=== PATIENT | female | born 1980 | race African-American/Black ===

== ENCOUNTER 2017-05-12 08:25 | Emergency (ER) | payer MEDICAID ==
[2017-05-12 08:36] VITALS: BP 139/76; BMI 26.2
[2017-05-12] MEDS ORDERED: DECADRON INJ IM ONE (08:56)
[2017-05-12] MEDS ORDERED: TORADOL 60 MG VIAL IM ONE (08:56)
--- NOTE | 2017-05-12 08:58 | DR.EXTPAIN ---
HPI - Time seen Time seen: 08:45 - PCP Primary Care Physician: SUYAPA - Complaint/Symptoms Chief Complaint Doctor Comments: LEFT FOOT PAIN AND SWELLING TIMES 2 DAYS. NO TRAUMA. HISTORY ARTHRTIS AND LUPUS. ON MEDS BUT PAIN GETTING WORSE. Chief Complaint:: PT. C/O LEFT FOOT PAIN AND SWELLING THAT BEGAN ON SATURDAY. - Nurses notes reviewed Nurses Notes Review: Yes - Source History Provided: Patient - Mode of arrival Mode of Arrival: Wheelchair - Timing Onset of Chief Complaint: 05/10/17 - Context History of: Arthritis - Associated signs and symptoms Associated Signs and Symptoms: Pain, Swelling PMH - PMH Past Medical History: Yes Past Medical History: Arthritis Past Medical History Comment: LUPUS, FIBROMYALGIA Past Surgical History: Yes Surgical History: - Family History History of Family Medical Conditions: Yes Family Medical History: Diabetes Mellitus, [place], Coronary Artery Disease, Heart Failure, Sudden Cardiac , Hypertension - Social History Does patient currently use any type of tobacco product: Yes Have you used tobacco products in the last 12 months: Yes Type of Tobacco Use: Cigarettes Does any household member use tobacco: No Alcohol Use: None Do you use any recreational Drugs:: No Lives With: Spouse Lives Where: Home - infectious screening In the last 2 months have you had wt loss of >10#?: NO Have you had fever, night sweats or hemotysis?: No Have you traveled outside the country in the last 6 months?: No Isolation: Standard ROS - Review of Systems Constitutional: Weakness, Fatigue. negative: Chills, Fever Eyes: No Symptoms Reported ENTM: No Symptoms Reported Respiratoy: Non-Productive Cough. negative: Productive Cough, Short of Breath, Wheezing Cardiovascular: No Symptoms Reported. negative: Chest Pain Gastrointestinal/Abdominal: No Symptoms Reported. negative: Abdominal Pain, Nausea, Vomiting Genitourinary: No Symptoms Reported. negative: Dysuria, Frequency, Hematuria Neurological: Headache, Weakness, Dizziness Musculoskeletal: Back Pain, Ankle, Foot Integumentary: No Symptoms Reported. negative: Change in Color, Juandice Hematologic/Lymphatic: No Symptoms Reported Endocrine: No Symptoms Reported All Other Systems: Reviewed and Negative PE - Vital Signs Vitals: Temperature 98.5 F Pulse Rate 106 Respiratory Rate 17 Blood Pressure 139/76 O2 Sat by Pulse Oximetry 100 - General Limitations: No Limitations General Appearance: Alert - Head Head Exam: Normal Inspection - Eyes Eye exam: Normal Appearance - ENT ENT Exam: Normal Exam - Neck Neck Exam: Trachea Midline - Chest Chest Inspection: Symmetric Chest Wall Rise - Respiratory Respiratory Exam: Normal Lung Sounds Bilat Respiratory Exam: Bilateral Clear to Auscultation - Cardiovascular Cardiovascular Exam: Regular Rate, Normal Rhythm, Normal Heart Sounds - Abdominal Exam Abdominal Exam: Normal Bowel Sounds, Soft. negative: Tenderness - Extremities Extremities Exam: Tenderness (LT FOOT), Joint Swelling (LT FOOT) - Back Back Exam: Paraspinal Tenderness (LOWER BACK) - Neurological Neurological Exam: Alert, Oriented X3 - Psychiatric Psychiatric Exam: Normal Affect, Normal Mood - Skin Skin Exam: Erythema MDM - Differential Diagnosis Differential Diagnosis: Other (ARTHRITIS, LUPUS) Course - Treatment Treatment: SEE ORDERS. - Reevaluation 1st: Improved - Education/Counseling Education/Counseling: Patient, Education Educated On: Treatment, Diagnosis, Needs for Follow Up - Diagnosis Discharge Problem: Arthritis, Left foot pain Lupus Qualifiers: Systemic lupus erythematosus type: unspecified Systemic lupus erythematosus organ involvement: unspecified Qualified Code(s): M32.9 - Systemic lupus erythematosus, unspecified - Discharge Plan Disposition: 01 HOME, SELF-CARE Condition: Stable - Follow ups/Referrals Follow ups/Referrals: Usman Mcclelland [Primary Care Provider] - 3 days - Instructions Instructions: Arthritis, Systemic Lupus Erythematosus, Adult Additional Instructions: RETURN TO ED IF WORSE.
[2017-05-12] MEDS ORDERED: TORADOL 60 MG VIAL ONE (09:06)
[2017-05-12] MEDS ORDERED: DECADRON INJ ONE (09:06)
== END 2017-05-12 09:53 | disposition home or self-care (01) ==
LOC: ER 08:30
DX: M32.8 Other forms of systemic lupus erythematosus (principal); M19.90 Unspecified osteoarthritis, unspecified site; M79.672 Pain in left foot
CPT/HCPCS: 96372; 99282; J1100; J1885

== ENCOUNTER 2017-06-08 13:56 | Emergency (ER) | payer MEDICAID ==
[2017-06-08 14:06] VITALS: BP 131/75; BMI 26.2
[2017-06-08] MEDS ORDERED: TORADOL 60 MG VIAL IM ONE (14:24)
[2017-06-08] MEDS ORDERED: DECADRON TAB PO ONE (14:25)
[2017-06-08] MEDS ORDERED: PHENERGAN INJ 25 MG IM ONE (14:25)
[2017-06-08] MEDS ORDERED: TORADOL 60 MG VIAL ONE (14:32)
[2017-06-08] MEDS ORDERED: PHENERGAN INJ 25 MG ONE (14:32)
[2017-06-08] MEDS ORDERED: DECADRON INJ ONE (14:32)
--- NOTE | 2017-06-08 14:32 | DR.GENAD ---
HPI - PCP Primary Care Physician: rabia - Complaint/Symptoms Chief Complaint Doctors Comments: Patient complains of not being able to move her left shoulder and arm due to pain for the past 2-3 days. States she had similar problem week ago but it went away and started again the other day. States she has lupus and sees a storeroom supervisor and is taking Methotrexade, Plaqunil, cymbalta, Soma and percocet 10. States she is out of her Perocet 10. she gets 120 monthly and states she usually run out a week early. she denies chest pain, SOB, nausea or vomiting. States she is off her methotrexade because she had sores in her mouth and her storeroom supervisor wanted to see if it was causing the sores so he stopped her methotrexate. She has been off Prednisone for a while. SHe denies fever, chills, headache or dizziness. States she can move her arm, hand, fingers and shoulder normally just hurts when she move her shoulder. Chief Complaint:: patient stated her left arm has been hurting for a week and last night it went numb. she stated she has lupus and fibromyliga and she needs a shot. - Nurses notes reviewed Nurses Notes Review: Yes - Source History Provided: Patient - Mode of Arrival Mode of Arrival: Ambulatory - Timing Onset of Chief Complaint: 06/05/17 Came on: Gradually - Duration Duration: Intermittent How lon Duration: Days - Location Location: left shoulder pain - Severity Severity: Moderate, Severe - Modifying Factors Worsens:: movement Improves:: nothing PMH - PMH Past Medical History: Yes Past Medical History: Arthritis Past Surgical History: Yes Surgical History: - Family History History of Family Medical Conditions: Yes Family Medical History: Diabetes Mellitus, [place], Coronary Artery Disease, Heart Failure, Sudden Cardiac , Hypertension - Social History Does patient currently use any type of tobacco product: Yes Have you used tobacco products in the last 12 months: Yes Type of Tobacco Use: Cigarettes How many years tobacco product used: 13 Does any household member use tobacco: Yes Alcohol Use: None Do you use any recreational Drugs:: No Lives With: Family Lives Where: Home - infectious screening In the last 2 months have you had wt loss of >10#?: NO Have you had fever, night sweats or hemotysis?: No Have you traveled outside the country in the last 6 months?: No Isolation: Standard ROS - Review of Systems Constitutional: No Symptoms Reported. negative: See HPI, Chills, Diaphoresis, Fever, Malaise, Weakness, Irritable, Fatigue, Loss of Appetite, Other Eyes: No Symptoms Reported. negative: See HPI, Eye Pain, Blurred Vision, Tearing, Discharge, Photophobia, Diplopia, Other ENTM: No Symptoms Reported. negative: See HPI, Ear Pain, Ear Discharge, Pulling on Ears, Hearing Loss, Nose Pain, Nose Discharge, Epistaxis, Nose Congestion, Mouth Pain, Mouth Swelling, Loose Teeth, Drooling, Throat Pain, Throat Swelling, Ear Foreign Body Respiratoy: No Symptoms Reported. negative: See HPI, Productive Cough, Non- Productive Cough, Moist Cough, Dry Cough, Hacking Cough, Barking Cough, Brassy Cough, Orthopnea, Short of Breath, Stridor, Wheezing, Hemoptysis, Other Cardiovascular: No Symptoms Reported. negative: See HPI, Chest Pain, Edema, Palpitations, Syncope, Cyanosis, Skin Mottling, Other Gastrointestinal/Abdominal: No Symptoms Reported. negative: See HPI, Abdominal Pain, Constipation, Diarrhea, Nausea, Vomiting, Food Intolerance, Other Genitourinary: No Symptoms Reported. negative: See HPI, Discharge, Dysuria, Frequency, Hematuria, Pain, Bleeding, Other Neurological: No Symptoms Reported. negative: See HPI, Anxiety, Depressed, Emotional Problems, Headache, Numbness, Paresthesia, Pre-existing Deficit, Seizure, Tingling, Tremors, Weakness, Dizziness, Problems Walking, Speech Problem, Other Musculoskeletal: No Symptoms Reported, Joint Pain, Muscle Pain, Left, Shoulder Integumentary: No Symptoms Reported. negative: See HPI, Change in Color, Change in Hair/Nails, Dryness, Lesions, Lumps, Rash, Itching, Wound, Bruises, Juandice, Other Hematologic/Lymphatic: No Symptoms Reported Endocrine: No Symptoms Reported. negative: See HPI, Excessive Sweating, Flushing, Intolerance to Cold, Intolerance to Heat, Increased Hunger, Increased Thirst, Increased Urine, Unexplained Weight Gain, Unexplained Weight Loss, Failure to Thrive, Decreased Appetite, Other Psychiatric: No Symptoms Reported PE - Vital Signs Vitals: Temperature 98.7 F Pulse Rate 87 Respiratory Rate 16 Blood Pressure 131/75 O2 Sat by Pulse Oximetry 100 - General Limitations: No Limitations General Appearance: Alert, In Distress (moderate) - Head Head Exam: Normal Inspection, Atraumatic, Normocephalic - Eyes Eye exam: Normal Appearance, PERRL, EOMI. negative: Scleral Icterus, Conjunctival Injection, Nystagmus, Miosis, Mydrasis, Periorbital Swelling, Periorbital Tenderness, Other - ENT ENT Exam: Normal Exam, Normal Oropharynx, Mucous Membranes Moist, TM's Normal Bilaterally. negative: Normal External Ear Exam, Mucous Membranes Dry, Other TM/Canal Exam: Bilateral Normal Nose Exam: Normal Nose Exam Mouth Exam: Normal Inspection. negative: Drooling, Trismus, Lip Swelling, Tongue Elevation, Tongue Swelling, Laceration, Other Throat Exam: Normal Inspection. negative: Tonsillar Erythema, Tonsillomegaly, Tonsillar Exudate, R Peritonsillar Mass, L Peritonsillar Mass, Muffled Voice, Other - Neck Neck Exam: Normal Inspection, Full ROM, Trachea Midline. negative: Tenderness, Meningismus, Lymphadenopathy, Thyromegaly, Other - Chest Chest Inspection: Normal Inspection, Symmetric Chest Wall Rise. negative: Tenderness, Rash, Abscess, Other - Respiratory Respiratory Exam: Normal Lung Sounds Bilat Respiratory Exam: Bilateral Clear to Auscultation - Cardiovascular Cardiovascular Exam: Regular Rate, Normal Rhythm, Normal Heart Sounds. negative : Bradycardia, Tachycardia, Irregular Rhythm, Systolic Murmur, Diastolic Murmur , Rubs, Gallop, Clicks, JVD, +S1, +S2, +S3, +S4, Other - Abdominal Exam Abdominal Exam: Normal Inspection, Normal Bowel Sounds, Soft. negative: Distention, Tenderness, Guarding, Rebound, Rigidity, Dimnished Bowel Sounds, Hyperactive Bowel Sounds, Hypoactive Bowel Sounds, Organomegaly, Trauma, Incision, Ascites, Mass, Bruit, Pulsatile Mass, Hernia, Other Abdominal Tenderness: negative: RUQ, RLQ, LUQ, LLQ, Epigastrium, Suprapubic, Diffuse, Mild, Moderate, Severe, Other - Extremities Extremities Exam: Normal Inspection, Full ROM, Tenderness (left shoulder tender ; no swelling or erythema), Normal Capillary Refill. negative: Edema, Joint Swelling, Calf Tenderness, Other - Back Back Exam: Normal Inspection, Full ROM. negative: Tenderness, (R) CVA Tenderness, (L) CVA Tenderness, Muscle Spasm, Paraspinal Tenderness, Vertebral Tenderness, Rashes, (R) Sciatic Notch Tenderness, (L) Sciatic Notch Tendern, (R ) Straight Leg Raise, (L) Straight Leg Raise, Other - Neurologic Neurological Exam: Alert, Oriented X3, CN II-XII Intact, Reflexes Normal. negative: Normal Gait (gait not tested) - Psychiatric Psychiatric Exam: Normal Affect, Normal Mood - Skin Skin Exam: Warm, Dry, Intact, Normal Color. negative: Rash, Cyanosis, Diaphoresis, Erythema, Pallor, Mottled, Other ROR - Labs Reviewed Laboratory Results Reviewed?: Yes (all x-ray results reviewed and discussed with patient) - XRAY XRAY Interpreted by: Radiologist (Shoulder,left: Negative exam.) - Diagnosis Discharge Problem: Lupus (systemic lupus erythematosus), Myalgia Left shoulder pain Qualifiers: Chronicity: acute Qualified Code(s): M25.512 - Pain in left shoulder - Discharge Plan Disposition: 01 HOME, SELF-CARE Condition: Stable Prescriptions: Acetaminophen/Codeine Tab [TYLENOL w/CODEINE #3 (300 MG/30 MG) *] 1 tab PO Q4- 6H PRN #24 tab PRN Reason: Pain Methylprednisolone Dosepak 4Mg [MEDROL DOSEPAK (4 mg tab x 21)] 1 marlene PO ONCE # 1 marlene - Follow ups/Referrals Follow ups/Referrals: Usman Mcclelland [Primary Care Provider] - 3 days - Instructions Instructions: Shoulder Pain, Systemic Lupus Erythematosus, Adult, Muscle Pain, Adult
[2017-06-08] MEDS ORDERED: DECADRON INJ IM ONE (14:33)
--- NOTE | 2017-06-08 15:22 | RAD ---
HISTORY: Left shoulder pain, nontraumatic Study: Left shoulder three view Comparison: None Findings: The appearance of the clavicle and AC joint are unremarkable. The glenohumeral articulation is norm al in its appearance. No acute cortical disruption or dislocation can be identified. The visualize d portions of the scapula are unremarkable. In addition, the visualized portions of the left hemith orax appear normal. IMPRESSION: 1. Negative exam. Reported By:
== END 2017-06-08 16:38 | disposition home or self-care (01) ==
LOC: ER 14:02
DX: L93.0 Discoid lupus erythematosus (principal); M79.1 Myalgia; M25.512 Pain in left shoulder
CPT/HCPCS: 73030; 96372; 99282; J1100; J1885; J2550

== ENCOUNTER 2017-06-24 15:30 | Emergency (ER) | payer MEDICAID ==
[2017-06-24 15:35] VITALS: BP 122/70; BMI 26.2
[2017-06-24] MEDS ORDERED: TORADOL 60 MG VIAL IM ONE (16:15)
--- NOTE | 2017-06-24 16:15 | DR.GENAD ---
HPI - PCP Primary Care Physician: rabia - HPI Comment HPI Comment: PAIN WORSE TODAY. NO TRAUMA. HAVE LUPUS ARTHRITIS AND PAIN SIMILAR TO LUPUS FLARE UP. - Complaint/Symptoms Chief Complaint Doctors Comments: PAIN RIGHT FOOT TIMES FEW DAYS. Chief Complaint:: patient stated her lupus is acting up in her right foot again she stated she needs that toradol shot to knock the pain on out. - Nurses notes reviewed Nurses Notes Review: Yes - Source History Provided: Patient - Mode of Arrival Mode of Arrival: Wheelchair - Timing Onset of Chief Complaint: 06/22/17 Came on: Gradually - Duration Duration: Days - Severity Severity: Moderate PMH - PMH Past Medical History: Yes Past Medical History: Arthritis Past Surgical History: Yes Surgical History: - Family History History of Family Medical Conditions: Yes Family Medical History: Diabetes Mellitus, [place], Coronary Artery Disease, Heart Failure, Sudden Cardiac , Hypertension - Social History Does patient currently use any type of tobacco product: Yes Have you used tobacco products in the last 12 months: Yes Type of Tobacco Use: Cigarettes How many years tobacco product used: 12 Does any household member use tobacco: Yes Alcohol Use: None Do you use any recreational Drugs:: No Lives With: Family Lives Where: Home - infectious screening In the last 2 months have you had wt loss of >10#?: NO Have you had fever, night sweats or hemotysis?: No Have you traveled outside the country in the last 6 months?: No Isolation: Standard ROS - Review of Systems Constitutional: Weakness, Fatigue. negative: Chills, Fever Eyes: No Symptoms Reported. negative: Eye Pain, Discharge ENTM: No Symptoms Reported. negative: Ear Pain, Nose Discharge, Nose Congestion , Throat Pain Respiratoy: Non-Productive Cough. negative: Productive Cough, Short of Breath, Wheezing, Hemoptysis Cardiovascular: No Symptoms Reported. negative: Chest Pain Gastrointestinal/Abdominal: No Symptoms Reported. negative: Abdominal Pain, Diarrhea, Nausea, Vomiting Genitourinary: No Symptoms Reported. negative: Dysuria, Frequency, Hematuria Neurological: Headache, Weakness. negative: Dizziness Musculoskeletal: Joint Pain, Joint Swelling, Muscle Pain Integumentary: No Symptoms Reported Hematologic/Lymphatic: No Symptoms Reported Endocrine: No Symptoms Reported All Other Systems: Reviewed and Negative PE - Vital Signs Vitals: Temperature 98.9 F Pulse Rate 91 Respiratory Rate 16 Blood Pressure 122/70 O2 Sat by Pulse Oximetry 100 - General Limitations: No Limitations General Appearance: Alert - Head Head Exam: Normal Inspection - Eyes Eye exam: Normal Appearance - ENT ENT Exam: Normal External Ear Exam External Ear Exam: Normal External Inspection TM/Canal Exam: Bilateral Normal Nose Exam: Normal Nose Exam Mouth Exam: Normal Inspection Throat Exam: Normal Inspection - Neck Neck Exam: Trachea Midline - Chest Chest Inspection: Symmetric Chest Wall Rise - Respiratory Respiratory Exam: Normal Lung Sounds Bilat Respiratory Exam: Bilateral Clear to Auscultation - Cardiovascular Cardiovascular Exam: Regular Rate, Normal Rhythm, Normal Heart Sounds - Abdominal Exam Abdominal Exam: Normal Bowel Sounds, Soft. negative: Tenderness - Extremities Extremities Exam: Tenderness (RT FOOT AND ANKLE TENDER), Joint Swelling (RT ANKLE SWOLLEN) - Back Back Exam: Normal Inspection - Neurologic Neurological Exam: Alert, Oriented X3 - Psychiatric Psychiatric Exam: Normal Affect, Normal Mood - Skin Skin Exam: Normal Color MDM - Additional Information Additional Information Obtained From: Family - Differential Diagnosis Differential Diagnosis: ARTHRITIS, LUPUS Course - Treatment Treatment: SEE ORDERS. IM TORADOL. PAIN IMPROVE, - Education/Counseling Education/Counseling: Patient, Family, Education Educated On: Treatment, Diagnosis, Needs for Follow Up - Diagnosis Discharge Problem: Arthritis Lupus Qualifiers: Systemic lupus erythematosus type: unspecified Systemic lupus erythematosus organ involvement: unspecified Qualified Code(s): M32.9 - Systemic lupus erythematosus, unspecified - Discharge Plan Disposition: 01 HOME, SELF-CARE Condition: Stable Prescriptions: Ketorolac Tromethamine [Toradol Tab] 10 mg PO Q8H PRN #15 tab PRN Reason: Pain - Follow ups/Referrals Follow ups/Referrals: Usman Mcclelland [Primary Care Provider] - 3 days - Instructions Instructions: Arthritis, [id number] Additional Instructions: return to ed if worse.
[2017-06-24] MEDS ORDERED: TORADOL 60 MG VIAL ONE (16:24)
== END 2017-06-24 17:13 | disposition home or self-care (01) ==
LOC: ER 15:37
DX: M19.90 Unspecified osteoarthritis, unspecified site (principal)
CPT/HCPCS: 96372; 99282; J1885

== ENCOUNTER → 2018-01-22 | Outpatient (CLI) | payer MEDICAID | END | disposition home or self-care (01) | DRG 547 | LOC: RAD 13:07 | PROVIDERS: ATTEND Internal Medicine Rheumatology | DX: M32.8 Other forms of systemic lupus erythematosus (principal); R09.1 Pleurisy; R07.9 Chest pain, unspecified; R01.1 Cardiac murmur, unspecified | CPT/HCPCS: 93306 ==

== ENCOUNTER 2018-02-17 12:26 | Emergency (ER) | payer MEDICAID ==
[2018-02-17 12:35] VITALS: BP 134/71; BMI 25.4
[2018-02-17] MEDS ORDERED: TORADOL 60 MG VIAL IM ONE (14:02)
[2018-02-17] MEDS ORDERED: DECADRON INJ IM ONE (14:02)
--- NOTE | 2018-02-17 14:03 | DR.GENAD ---
HPI - PCP Primary Care Physician: SUYAPA KLEIN - HPI Comment HPI Comment: HISTORY ARTHRTIS AND LUPUS. FLARE UP INTERMITTENTLY. NO FEVER OR TRAUMA. - Complaint/Symptoms Chief Complaint Doctors Comments: PAIN LEFT LEG AND RT HAND PAIN TIMES ONE WEEK. Chief Complaint:: PT C/O OVER THE LAST WEEK HAVING SOME PAIN TO HER RIGHT LEG DUE TO FIBRO AND LUPUS, PT TOOK STERIODS AND THEY HELPED AND SHE WOKE UP THIS AM AND HER LEFT LEG IS HURTING HER AND HER RIGHT HAND IS DRAWING UP. Self Treatment fo Chief Complaint: PERCOCET, SOMA , NEURONTIN , - Nurses notes reviewed Nurses Notes Review: Yes - Source History Provided: Patient - Mode of Arrival Mode of Arrival: Ambulatory - Timing Onset of Chief Complaint: 02/10/18 Came on: Suddenly - Duration Duration: Constant Duration: Days - Severity Severity: Moderate PMH - PMH Past Medical History: Yes Past Medical History: Arthritis Past Medical History Comment: FIBRO, LUPUS, Past Surgical History: Yes Surgical History: - Family History History of Family Medical Conditions: Yes Family Medical History: Diabetes Mellitus, [place], Coronary Artery Disease, Heart Failure, Sudden Cardiac , Hypertension - Social History Does patient currently use any type of tobacco product: Yes Have you used tobacco products in the last 12 months: Yes Type of Tobacco Use: Cigarettes How many years tobacco product used: 10 Does any household member use tobacco: No Alcohol Use: None Do you use any recreational Drugs:: No Lives With: Family Lives Where: Home - infectious screening In the last 2 months have you had wt loss of >10#?: NO Have you had fever, night sweats or hemotysis?: No Have you traveled outside the country in the last 6 months?: No Isolation: Standard ROS - Review of Systems Constitutional: No Symptoms Reported. negative: Chills, Fever Eyes: No Symptoms Reported ENTM: No Symptoms Reported Respiratoy: No Symptoms Reported Cardiovascular: No Symptoms Reported Gastrointestinal/Abdominal: No Symptoms Reported Genitourinary: No Symptoms Reported Neurological: No Symptoms Reported Musculoskeletal: Joint Pain, Joint Swelling, Muscle Pain, Right, Left, Hand, Leg Integumentary: No Symptoms Reported Hematologic/Lymphatic: No Symptoms Reported Endocrine: No Symptoms Reported All Other Systems: Reviewed and Negative PE - Vital Signs Vitals: Temperature 99.2 F Pulse Rate 113 Respiratory Rate 20 Blood Pressure 134/71 O2 Sat by Pulse Oximetry 99 - General Limitations: No Limitations General Appearance: Alert - Head Head Exam: Normal Inspection - Eyes Eye exam: Normal Appearance - ENT ENT Exam: Normal External Ear Exam External Ear Exam: Normal External Inspection TM/Canal Exam: Bilateral Normal Nose Exam: Normal Nose Exam Mouth Exam: Normal Inspection Throat Exam: Normal Inspection - Neck Neck Exam: Normal Inspection - Chest Chest Inspection: Symmetric Chest Wall Rise - Respiratory Respiratory Exam: Normal Lung Sounds Bilat Respiratory Exam: Bilateral Clear to Auscultation - Cardiovascular Cardiovascular Exam: Regular Rate, Normal Rhythm, Normal Heart Sounds - Abdominal Exam Abdominal Exam: Normal Bowel Sounds, Soft. negative: Tenderness - Extremities Extremities Exam: Tenderness (RT HAND AND LT ANKLE AND KNEE SWELLING AND TENDERNESS. VALDO.) - Back Back Exam: Normal Inspection - Neurologic Neurological Exam: Alert, Oriented X3 - Psychiatric Psychiatric Exam: Normal Affect, Normal Mood - Skin Skin Exam: Normal Color MDM - Differential Diagnosis Differential Diagnosis: ARTHRTIS, LUPUS, FIBROMYALGIA Course - Treatment Treatment: SEE ORDERS. IM DECADRON AND TORADOL IN ED. IMPROVE. - Education/Counseling Education/Counseling: Patient, Education Educated On: Treatment, Diagnosis, Needs for Follow Up - Diagnosis Discharge Problem: Arthritis, Fibromyalgia - Discharge Plan Disposition: 01 HOME, SELF-CARE Condition: Stable - Follow ups/Referrals Follow ups/Referrals: Usman Mcclelland [Primary Care Provider] - 3 days - Instructions Instructions: Arthritis, [id number], Myofascial Pain Syndrome and Fibromyalgia, Musculoskeletal Pain Additional Instructions: RETURN TO ED IF WORSE. CONTINUE MEDS AT HOME.
[2018-02-17] MEDS ORDERED: TORADOL 60 MG VIAL ONE (14:07)
[2018-02-17] MEDS ORDERED: DECADRON INJ ONE (14:07)
== END 2018-02-17 14:54 | disposition home or self-care (01) ==
LOC: ER 12:41
DX: M19.90 Unspecified osteoarthritis, unspecified site (principal); M79.7 Fibromyalgia
CPT/HCPCS: 96372; 99282; J1100; J1885

== ENCOUNTER 2018-03-10 13:32 | Emergency (ER) | payer MEDICAID ==
[2018-03-10 13:35] VITALS: BMI 25.4
[2018-03-10 14:31] LABS: BASOPHILS # (AUTO) 0.1 X10^3/uL (0.0-0.1); BASOPHILS % (AUTO) 1.1 % (0.2-1.0); EOSINOPHILS # (AUTO) 0.1 x10^3/uL (0.0-0.2); EOSINOPHILS % (AUTO) 0.7 % (0.9-2.9); HEMATOCRIT 28.4 % (36.0-47.0); HEMOGLOBIN 8.9 g/dL (12.0-16.0); LYMPHOCYTES # (AUTO) 1.4 X10^3/uL (1.3-2.9); LYMPHOCYTES % (AUTO) 14.4 % (21.0-51.0); MEAN CORPUSCULAR HEMOGLOBIN 20.1 pg (27.0-34.0); MEAN CORPUSCULAR HGB CONC 31.2 g/dL (33.0-35.0); MEAN CORPUSCULAR VOLUME 64.2 fL (80.0-100.0); MEAN PLATELET VOLUME 7.2 fL (7.4-11.0); MONOCYTES # (AUTO) 0.8 x10^3/uL (0.3-0.8); MONOCYTES % (AUTO) 7.8 % (0.0-13.0); NEUTROPHILS # (AUTO) 7.7 x10^3/uL (2.2-4.8); PLATELET COUNT 384 X10^3/uL (150.0-450.0); RED BLOOD COUNT 4.42 X10^6/uL (3.5-5.4); RED CELL DISTRIBUTION WIDTH 21.7 % (11.6-16.5); WHITE BLOOD COUNT 10.1 X10^3/uL (3.6-10.0)
[2018-03-10 14:39] LABS: PLATELET MORPHOLOGY COMMENT NORMAL (NORMAL)
[2018-03-10 14:41] LABS: ANISOCYTOSIS 2+; HYPOCHROMASIA 2+; MICROCYTOSIS 2+; TARGET CELLS F
[2018-03-10 14:43] VITALS: BP 122/61
[2018-03-10 14:45] LABS: BLOOD UREA NITROGEN 10 mg/dL (7-18); CARBON DIOXIDE 27.6 mmol/L (21-32); CHLORIDE 105 mmol/L (98-107); CREATININE 0.67 mg/dL (0.55-1.02); SODIUM 140 mmol/L (136-145); TROPONIN I < 0.02 ng/mL (0-1.5); eGFR BLACK RACES > 60 (>60); eGFR NON BLACK RACES > 60 (>60)
[2018-03-10 14:49] LABS: ALANINE AMINOTRANSFERASE 22 Units/L (12-78); ALBUMIN 3.2 g/dL (3.4-5.0); ALKALINE PHOSPHATASE 73 Units/L (46-116); ASPARTATE AMINO TRANSFERASE 15 Units/L (15-37); CKMB % 2.4 % (<4); COR CA(FOR HYPOALB) 9.6 mg/dL (8.5-10.1); CREATINE KINASE 42 Units/L (26-192); CREATINE KINASE MB < 1.0 ng/mL (0-4.0)
[2018-03-10] MEDS ORDERED: DECADRON INJ IM ONE (14:54)
[2018-03-10] MEDS ORDERED: TORADOL 60 MG VIAL IM ONE (14:54)
--- NOTE | 2018-03-10 14:55 | RAD ---
HISTORY: Chest pain. Comparison: 03/13/2016. Exam/Technique: Single portable view of the chest. Findings: The exam demonstrates a midline trachea. The cardiac silhouette is mildly enlarged without evidence f or CHF. The lungs are clear without consolidation, effusion, or pneumothorax. No other cardiopulmonar y abnormality is seen. The bony thorax is grossly intact/stable. Impression: Mildly enlarged cardiac silhouette without additional cardiopulmonary abnormality seen. Reported By:
[2018-03-10] MEDS ORDERED: TORADOL 60 MG VIAL ONE (14:56)
[2018-03-10] MEDS ORDERED: DECADRON INJ ONE (14:56)
--- NOTE | 2018-03-10 14:59 | DR.CP ---
HPI - Time Seen Time seen: 14:00 - PCP Primary Care Physician: SUYAPA - HPI Comment HPI Comment: HISTORY LUPUS AND FIBROMYALGIA. MED AT HOME DID NOT HELP PAIN. PATIENT MAKAYLA FEVER OR URI SYMTOMS. PAIN SIMILAR TO PREVIOUS EPISODES. - Complaint Chief Complaint Doctor Comments: CHEST PAIN TIMES 3DAYS. LT ARM PAIN SINCE THIS AM. Chief Complaint:: PT. C/O LEFT SIDED CHEST PAIN THAT BEGAN ON SATURDAY & HAS BEEN INTERMITTENT. LEFT ARM BEGAN HURTING THIS MORNING WITH RADIATING BACK PAIN. PT. HAS ALSO HAD SHORTNESS OF BREATH. - Reviewed Nurses Notes Review: Yes - Source History Provided: Patient - Mode of Arrival Mode of Arrival: Ambulatory - Timing Onset of Chief Complaint: 03/07/18 Came on: Suddenly Pain: Present Now - Duration Duration: Intermittent Duration: Hours - Location Location of Chest Pain: Left, Chest Chest Pain Radiation Location: Left Arm, Back - Context Onset: At rest, With light exertion Cardiac Risk Factors: Family History PE Risk Factors: None History of: Similar pain in the past Prehospital Care: None - Quality Quality: Sharp - Severity Severity: Moderate - Modifying Factors Worsens: Nothing Impoves: Other - Associated Signs and Symptoms Associated Signs and Symptoms: Shortness of Breath PMH - PMH Past Medical History: Yes Past Medical History: Arthritis Past Medical History Comment: LUPUS, FIBROMYALGIA Past Surgical History: Yes Surgical History: - Family History History of Family Medical Conditions: Yes Family Medical History: Diabetes Mellitus, CT, Coronary Artery Disease, Heart Failure, Sudden Cardiac , Hypertension - Social History Does patient currently use any type of tobacco product: Yes Have you used tobacco products in the last 12 months: Yes Type of Tobacco Use: Cigarettes Does any household member use tobacco: No Alcohol Use: None Do you use any recreational Drugs:: No Lives With: Spouse Lives Where: Home - infectious screening In the last 2 months have you had wt loss of >10#?: NO Have you had fever, night sweats or hemotysis?: No Have you traveled outside the country in the last 6 months?: No Isolation: Standard ROS - Review of Systems Constitutional: Weakness, Fatigue. negative: Chills, Fever Eyes: No Symptoms Reported. negative: Eye Pain, Discharge ENTM: No Symptoms Reported. negative: Ear Pain, Nose Discharge, Nose Congestion , Throat Pain Respiratoy: Non-Productive Cough, Short of Breath. negative: Productive Cough, Wheezing, Hemoptysis Cardiovascular: Chest Pain. negative: Edema, Palpitations, Syncope Gastrointestinal/Abdominal: No Symptoms Reported. negative: Abdominal Pain, Diarrhea, Nausea, Vomiting Genitourinary: No Symptoms Reported. negative: Dysuria, Frequency, Hematuria Neurological: No Symptoms Reported, Headache, Paresthesia, Weakness, Dizziness Musculoskeletal: Muscle Pain Integumentary: No Symptoms Reported Hematologic/Lymphatic: No Symptoms Reported Endocrine: No Symptoms Reported. negative: Flushing, Increased Thirst, Increased Urine All Other Systems: Reviewed and Negative PE - Vitals Vitals: Temperature 98.6 F Pulse Rate [Apical] 90 Pulse Rate 99 Respiratory Rate 19 Blood Pressure [Left Arm] 122/61 Blood Pressure 118/64 O2 Sat by Pulse Oximetry 100 - General Limitations: No Limitations General Appearance: Alert - Head Head Exam: Normal Inspection - Eyes Eye exam: Normal Appearance - ENT ENT Exam: Normal External Ear Exam - Chest Chest Inspection: Symmetric Chest Wall Rise - Respiratory Respiratory Exam: Respiratory Distress Respiratory Exam: Bilateral Rhonchi, Lower Rhonchi - Cardiovascular Cardiovascular Exam: Regular Rate, Normal Rhythm, Normal Heart Sounds Pulse: Normal, Radial, Femoral Edema: Normal - Abdominal Exam Abdominal Exam: Normal Bowel Sounds, Soft. negative: Tenderness - Extremities Extremities Exam: Normal Inspection - Back Back Exam: Normal Inspection - Neurologic Neurological Exam: Alert, Oriented X3, CN II-XII Intact, Normal Gait, Reflexes Normal. negative: Motor Sensory Deficit - Psychiatric Psychiatric Exam: Normal Affect, Normal Mood - Skin Skin Exam: Normal Color MDM - Additional Information Additional Information Obtained From: Family - Differential Diagnosis Differential Diagnosis: Chest Wall Pain, Costochondritis, Esophageal Reflux/ Spasm, Gastritis, Myocardial Infarction, Pericarditis, Pleuritis, Pancreatitis, Pneumonia, Pneumothorax, Pulmonary Embolus Course - Treatment Treatment: SEE ORDERS. - Education/Counseling Education/Counseling: Patient, Family, Education Educated On: Treatment, Diagnosis, Needs for Follow Up ROR - Labs Reviewed Laboratory Results Reviewed?: Yes Result Diagrams: 03/10/18 14:18 03/10/18 14:18 Laboratory: WBC 10.1 X10^3/uL (3.6-10.0) H 03/10/18 14:18 RBC 4.42 X10^6/uL (3.5-5.4) 03/10/18 14:18 Hgb 8.9 g/dL (12.0-16.0) L 04/09/18 14:18 Hct 28.4 % (36.0-47.0) L 03/10/18 14:18 MCV 64.2 fL (80.0-100.0) L 03/10/18 14:18 MCH 20.1 pg (27.0-34.0) L 03/10/18 14:18 MCHC 31.2 g/dL (33.0-35.0) L 03/10/18 14:18 RDW 21.7 % (11.6-16.5) H 03/10/18 14:18 Plt Count 384 X10^3/uL (150.0-450.0) 03/10/18 14:18 Plt Count Comment Adequate (ADEQUATE) 03/10/18 14:18 MPV 7.2 fL (7.4-11.0) L 03/10/18 14:18 Neut % (Auto) 76.0 % (42.0-75.0) H 03/10/18 14:18 Lymph % (Auto) 14.4 % (21.0-51.0) L 03/10/18 14:18 [place] % (Auto) 7.8 % (0.0-13.0) 03/10/18 14:18 Eos % (Auto) 0.7 % (0.9-2.9) L 03/10/18 14:18 Baso % (Auto) 1.1 % (0.2-1.0) H 03/10/18 14:18 Neut # (Auto) 7.7 x10^3/uL (2.2-4.8) H 03/10/18 14:18 Lymph # (Auto) 1.4 X10^3/uL (1.3-2.9) 03/10/18 14:18 [place] # (Auto) 0.8 x10^3/uL (0.3-0.8) 03/10/18 14:18 Eos # (Auto) 0.1 x10^3/uL (0.0-0.2) 03/10/18 14:18 Baso # (Auto) 0.1 X10^3/uL (0.0-0.1) 03/10/18 14:18 Absolute Nucleated RBC 0.0 /100WBC 03/10/18 14:18 Plt Morphology Comment Normal (NORMAL) 03/10/18 14:18 RBC Morphology Abnormal (NORMAL) A 03/10/18 14:18 Hypochromasia 2+ A 03/10/18 14:18 Anisocytosis 2+ A 03/10/18 14:18 Microcytosis 2+ A 03/10/18 14:18 Target Cells F 03/10/18 14:18 INR Target Range - 03/10/18 14:18 INR 1.04 (0.8-1.3) 03/10/18 14:18 APTT 27.8 SECONDS (22.9-36.5) 03/10/18 14:18 PTT Comment - 03/10/18 14:18 D-Dimer 2220 ng/mL (0-400) H* 03/10/18 14:18 Sodium 140 mmol/L (136-145) 03/10/18 14:18 Corrected Sodium TNP 03/10/18 14:18 Potassium 4.5 mmol/L (3.5-5.1) 03/10/18 14:18 Chloride 105 mmol/L (98-107) 03/10/18 14:18 Carbon Dioxide 27.6 mmol/L (21-32) 03/10/18 14:18 BUN 10 mg/dL (7-18) 03/10/18 14:18 Creatinine 0.67 mg/dL (0.55-1.02) 03/10/18 14:18 Est GFR (MDRD) Af Amer > 60 (>60) 03/10/18 14:18 Est GFR (MDRD) Non-Af > 60 (>60) 03/10/18 14:18 Glucose 87 mg/dL (65-99) 03/10/18 14:18 Calcium 9.0 mg/dL (8.5-10.1) 03/10/18 14:18 Corrected Calcium 9.6 mg/dL (8.5-10.1) 03/10/18 14:18 Total Bilirubin 0.20 mg/dL (0.2-1.0) 03/10/18 14:18 AST 15 Units/L (15-37) 03/10/18 14:18 ALT 22 Units/L (12-78) 03/10/18 14:18 Alkaline Phosphatase 73 Units/L (46-116) 03/10/18 14:18 Creatine Kinase 42 Units/L (26-192) 03/10/18 14:18 CK-MB (CK-2) < 1.0 ng/mL (0-4.0) 03/10/18 14:18 CK/CKMB % Calc 2.4 % (<4) 03/10/18 14:18 Troponin I < 0.02 ng/mL (0-1.5) 03/10/18 14:18 Total Protein 9.0 g/dL (6.4-8.2) H 03/10/18 14:18 Albumin 3.2 g/dL (3.4-5.0) L 03/10/18 14:18 Globulin 5.8 g/dL (2.5-4.5) H 03/10/18 14:18 Albumin/Globulin Ratio 0.6 Ratio (1.1-2.1) L 03/10/18 14:18 - XRAY XRAY Interpreted by: Radiologist XRAY Findings: REPORT DISCUSS WITH PATIENT. - EKG Rhythm: NSR (EKG NOTED) - Diagnosis Discharge Problem: Arthritis, Fibromyalgia Chest pain Qualifiers: Chest pain type: precordial pain Qualified Code(s): R07.2 - Precordial pain Lupus Qualifiers: Systemic lupus erythematosus type: other Systemic lupus erythematosus organ involvement: unspecified Qualified Code(s): M32.8 - Other forms of systemic lupus erythematosus - Discharge Plan Disposition: 01 HOME, SELF-CARE Condition: Stable - Follow ups/Referrals Follow ups/Referrals: Usman Mcclelland [Primary Care Provider] - 3 days - Instructions Instructions: Systemic Lupus Erythematosus, Adult, Musculoskeletal Pain, Chest Pain Observation Additional Instructions: RETURN TO ED IF WORSE.
[2018-03-10] MEDS ORDERED: ZOFRAN TAB 4 MG PO ONE (15:12)
[2018-03-10] MEDS ORDERED: NS 100 ML IV 100 ML IV ONE (15:31)
--- NOTE | 2018-03-10 16:21 | CT ---
CTA chest Indication: Left-sided chest pain, shortness of breath, elevated D-dimer Comparison: None Technique: CT images of the chest were obtained with contrast. Automatic exposure control was utilize d. MIP images provided. Findings: The upper abdomen is grossly unremarkable. No aggressive osseous lesions. An os acromiale i s incidentally noted bilaterally. Normal heart size, without pericardial thickening or pericardial effusion. The thoracic aorta is tee sly normal for technique. Contrast bolus timing is suboptimal, limiting evaluation of the segmental p ulmonary arteries. Accounting for this, no pulmonary arterially defect is identified. Mildly enlarged right hilar lymph nodes are noted. There is upper lobe predominant paraseptal emphysema. Aside from minimal basilar atelectasis, the davidson gs are clear. No pleural effusion or pneumothorax. The major airways are patent. Impression: No evidence for PTE. No acute chest process. Emphysema. Mild right hilar adenopathy, likely reactive. Reported By:
== END 2018-03-10 17:03 | disposition home or self-care (01) ==
LOC: ER 13:36
DX: M32.8 Other forms of systemic lupus erythematosus (principal); R07.2 Precordial pain; J86.9 Pyothorax without fistula; R59.9 Enlarged lymph nodes, unspecified; M19.90 Unspecified osteoarthritis, unspecified site; M79.7 Fibromyalgia
CPT/HCPCS: 36415; 71045; 71275; 80053; 82550; 82553; 84484; 85025; 85378; 85610; 85730; 93005; 93010; 96365; 99283; 99285; A4222; J1100; J1885

== ENCOUNTER 2019-01-01 10:53 | Observation (INO) ==
[2019-01-01] MEDS ORDERED: TYLENOL 325 MG TAB PO PRN (12:04)
[2019-01-01] MEDS ORDERED: BENADRYL INJ 50 MG VIAL IVP PRN (12:04)
[2019-01-01] MEDS ORDERED: NS 500 ML IV 500 ML IV ONE (12:04)
[2019-01-01 12:29] VITALS: BMI 23.0
[2019-01-01 12:32] LABS: BASOPHILS # (AUTO) 0.1 X10^3/uL (0.0-0.1); BASOPHILS % (AUTO) 1.1 % (0.2-1.0); EOSINOPHILS # (AUTO) 0.1 x10^3/uL (0.0-0.2); EOSINOPHILS % (AUTO) 0.6 % (0.9-2.9); HEMATOCRIT 25.9 % (36.0-47.0); HEMOGLOBIN 7.9 g/dL (12.0-16.0); LYMPHOCYTES # (AUTO) 0.9 X10^3/uL (1.3-2.9); LYMPHOCYTES % (AUTO) 10.5 % (21.0-51.0); MEAN CORPUSCULAR HEMOGLOBIN 18.9 pg (27.0-34.0); MEAN CORPUSCULAR HGB CONC 30.3 g/dL (33.0-35.0); MEAN CORPUSCULAR VOLUME 62.4 fL (80.0-100.0); MEAN PLATELET VOLUME 8.5 fL (7.4-11.0); MONOCYTES # (AUTO) 0.5 x10^3/uL (0.3-0.8); MONOCYTES % (AUTO) 5.6 % (0.0-13.0); NEUTROPHILS # (AUTO) 7.4 x10^3/uL (2.2-4.8); NEUTROPHILS % (AUTO) 82.2 % (42.0-75.0); PLATELET COUNT 207 X10^3/uL (150.0-450.0); RED BLOOD COUNT 4.15 X10^6/uL (3.5-5.4); RED CELL DISTRIBUTION WIDTH 21.3 % (11.6-16.5)
[2019-01-01 12:48] LABS: ANISOCYTOSIS 1+; HYPOCHROMASIA 3+; MICROCYTOSIS 2+; PLATELET MORPHOLOGY COMMENT NORMAL (NORMAL); TARGET CELLS FEW
[2019-01-01 12:56] LABS: ALANINE AMINOTRANSFERASE 14 Units/L (12-78); ALBUMIN 2.3 g/dL (3.4-5.0); ALKALINE PHOSPHATASE 57 Units/L (46-116); ASPARTATE AMINO TRANSFERASE 15 Units/L (15-37); BLOOD UREA NITROGEN 14 mg/dL (7-18); CALCIUM 8.6 mg/dL (8.5-10.1); CARBON DIOXIDE 27.9 mmol/L (21-32); CHLORIDE 102 mmol/L (98-107); SODIUM 138 mmol/L (136-145); TOTAL PROTEIN 7.6 g/dL (6.4-8.2); eGFR NON BLACK RACES > 60 (>60)
--- NOTE | 2019-01-01 13:01 | RAD ---
HISTORY: 38-year-old female with lupus and fibromyalgia presents with shortness of breath. Study: Frontal view of the chest. Comparison: Chest radiograph 03/10/2018, CTA chest 03/10/2018 Findings: The trachea is midline. The cardiac silhouette is stably enlarged with left basilar atelectasis and streaky airspace opacities right lung base. Trace left effusion. No pneumothorax. Soft tissues are unremarkable. Osseous structures are unremarkable. IMPRESSION: 1. Trace left effusion and basilar atelectasis with streaky airspace opacities right lung base correlate clinically for underlying pneumonia. 2. Chronic cardiomegaly. Reported By:
[2019-01-01] MEDS: NS 1000 ML 1,000 ML IV SCH ×2 (13:05→19:31)
[2019-01-01] MEDS: SOLU-Medrol 40 MG VIAL IVP SCH ×4 (13:05→21:27)
[2019-01-01 15:15] LABS: BILIRUBIN,URINE NEGATIVE (NEGATIVE); BLOOD/HEMOGLOBIN,URINE NEGATIVE (NEGATIVE); GLUCOSE, URINE NEGATIVE (NEGATIVE); KETONES,URINE NEGATIVE (NEGATIVE); LEUKOCYTE ESTERASE ,URINE NEGATIVE (NEGATIVE); NITRITES,URINE NEGATIVE (NEGATIVE); PROTEIN,URINE 2+ (NEGATIVE); UROBILINOGEN,URINE NORMAL (NORMAL)
[2019-01-01 15:22] LABS: APPEARANCE,URINE HAZY (CLEAR); COLOR,URINE DARK YELLOW (YELLOW)
[2019-01-01 15:23] LABS: AMORPHOUS SEDIMENT,UR 1+ /HPF (NEGATIVE); BACTERIA,URINE TRACE /HPF (NEGATIVE); MUCUS,URINE FEW /HPF (NEGATIVE); RBC,URINE 0-2 /HPF (NONE SEEN); SQUAMOUS EPITHELIAL CELL,UR MODERATE /HPF (NEGATIVE)
[2019-01-01] MEDS: DUONEB 0.5 MG/3 MG NEB SCH (17:09)
[2019-01-01] MEDS ORDERED: KLOR-CON PO PRN (18:39)
[2019-01-01] MEDS ORDERED: POTASSIUM CHL 60 MEQ/NS 0.45% 500 ML IV PRN (18:39)
[2019-01-01] MEDS ORDERED: POTASSIUM CHL 40 MEQ/NS 0.45% 500 ML IV PRN (18:39)
[2019-01-01] MEDS ORDERED: K-DUR TAB 20 MEQ PO PRN (18:39)
[2019-01-01] MEDS ORDERED: POTASSIUM CHLORIDE LIQ 20 MEQ UDC PO PRN (18:39)
[2019-01-01] MEDS ORDERED: K-RIDER 10 MEQ/NS 100 ML 10 MEQ/100 ML BAG IV PRN (18:39)
[2019-01-01] MEDS ORDERED: MICRO K EXTEN CAP 10 MEQ PO PRN (18:39)
[2019-01-01] MEDS: PLAQUENIL PO SCH (21:27)
[2019-01-02] MEDS: DUONEB 0.5 MG/3 MG NEB SCH ×2 (00:07→05:25)
[2019-01-02] MEDS: NS 1000 ML 1,000 ML IV SCH (04:02)
[2019-01-02] MEDS: SOLU-Medrol 40 MG VIAL IVP SCH (05:11)
[2019-01-02 05:39] LABS: BASOPHILS # (AUTO) 0.1 X10^3/uL (0.0-0.1); BASOPHILS % (AUTO) 0.7 % (0.2-1.0); HEMOGLOBIN 9.4 g/dL (12.0-16.0); LYMPHOCYTES # (AUTO) 0.9 X10^3/uL (1.3-2.9); LYMPHOCYTES % (AUTO) 9.6 % (21.0-51.0); MEAN CORPUSCULAR HEMOGLOBIN 21.2 pg (27.0-34.0); MEAN CORPUSCULAR HGB CONC 31.5 g/dL (33.0-35.0); MEAN CORPUSCULAR VOLUME 67.1 fL (80.0-100.0); MEAN PLATELET VOLUME 8.5 fL (7.4-11.0); MONOCYTES # (AUTO) 0.5 x10^3/uL (0.3-0.8); MONOCYTES % (AUTO) 5.4 % (0.0-13.0); NEUTROPHILS # (AUTO) 8.2 x10^3/uL (2.2-4.8); NEUTROPHILS % (AUTO) 84.3 % (42.0-75.0); PLATELET COUNT 182 X10^3/uL (150.0-450.0); RED BLOOD COUNT 4.47 X10^6/uL (3.5-5.4); RED CELL DISTRIBUTION WIDTH 24.9 % (11.6-16.5); WHITE BLOOD COUNT 9.8 X10^3/uL (3.6-10.0)
[2019-01-02 05:48] LABS: ALANINE AMINOTRANSFERASE 15 Units/L (12-78); ALBUMIN 2.1 g/dL (3.4-5.0); ALKALINE PHOSPHATASE 61 Units/L (46-116); ASPARTATE AMINO TRANSFERASE < 6 Units/L (15-37); BLOOD UREA NITROGEN 14 mg/dL (7-18); CALCIUM 8.7 mg/dL (8.5-10.1); CARBON DIOXIDE 23.7 mmol/L (21-32); CHLORIDE 105 mmol/L (98-107); COR CA(FOR HYPOALB) 10.2 mg/dL (8.5-10.1); COR NA(FOR HYPERGLY) 138 mmol/L (136-145); CREATININE 0.65 mg/dL (0.55-1.02); SODIUM 138 mmol/L (136-145); TOTAL PROTEIN 7.4 g/dL (6.4-8.2); eGFR NON BLACK RACES > 60 (>60)
[2019-01-02 05:52] LABS: ANISOCYTOSIS 3+; HYPOCHROMASIA 3+; MICROCYTOSIS 1+; PLATELET MORPHOLOGY COMMENT NORMAL (NORMAL); TARGET CELLS PRESENT
[2019-01-02 08:00] VITALS: BP 197/77
[2019-01-02] MEDS: PLAQUENIL PO SCH (09:00)
[2019-01-02] MEDS ORDERED: CYMBALTA PO SCH (09:00)
== END 2019-01-02 11:25 | disposition home or self-care (01) ==
LOC: MED/SURG
PROVIDERS: ADMIT Internal Medicine; ATTEND Internal Medicine
CPT/HCPCS: 36415; 36430; 71010; 71045; 80053; 81001; 83735; 85025; 86850; 86900; 86901; 86922; 94640; 94760; 96367; 96374; A4216; A4222; P9016; G0378; J1200; J2920; J3490; J7030; J7040; J7620

== ENCOUNTER 2019-01-03 04:48 | Inpatient (IN) ==
[2019-01-03] MEDS ORDERED: XOPENEX 1.25 MG/3 ML NEBULE NEB ONE (05:01)
[2019-01-03 05:07] VITALS: BMI 23.3
[2019-01-03] MEDS ORDERED: SOLU-Medrol 125 MG VIAL IVP ONE (05:07)
[2019-01-03] MEDS ORDERED: DUONEB 0.5 MG/3 MG NEB ONE (05:07)
[2019-01-03] MEDS ORDERED: SOLU-Medrol 125 MG VIAL ONE (05:09)
[2019-01-03] MEDS ORDERED: LASIX ONE (05:09)
[2019-01-03] MEDS ORDERED: LASIX IVP STA (05:09)
--- NOTE | 2019-01-03 05:13 | DR.SOBA ---
HPI - Time Seen Time seen: 05:07 - Complaints Chief Complaint Doctors Comments: Patient states she has been having problems breathing and it woke her up about 30 minutes ago. States she just left the hospital this morning with similar problems and has been taking her medicines at home. State she smokes 1/2 pack cigarettes daily but denies alcohol usage. She is a patient of Dr. Mcclelland and states she has been trying to quit smoking but only smoked one cigarette since being home. she denies swelling of her hands or feet. She has a cough and chest pain when she deep breathe. She denies nausea, vomiting fever or chills. - Reviewed Nurses Notes Reviewed: Yes - Source History Provided: Patient - Mode of Arrival Mode of Arrival: EMS - Duration Onset: a.m. Duration: Minutes (30) - Context Onset:: While Asleep PE Risk Factors:: None History of:: Asthma, COPD Currently on:: Inhaled Bronchodilators Prehospital Care:: Inhaled B2 - Modifying Factors Worsens:: Exertion Improves:: Nothing - Associated Signs and Symptoms Associated Signs and Symptoms: Wheeze, Cough. denies: None, Fever, Nasal Congestion, Sore Throat, Hemoptysis, Chest Pain, Leg Swelling, Calf Pain, Anxiety, Numbness, Perioral Numbness, Hands Numbness, Feet Numbness - If Chest Pain Quality: denies: Sharp, Stabbing, Squeezing, Pressure like, Heavy, Crushing, Burning, Aching, Pleuritic, Other Location: denies: Right Upper Chest, Right Lower Chest, Left Upper Chest, Left Lower Chest, Substernal, Chest Wall - If Cough Cough: Productive, Clear PMH - PMH Past Medical History: Arthritis Past Surgical History: Yes Surgical History: - Family History Family Medical History: OK - Social History Do you use any recreational Drugs:: No ROS - Review of Systems Constitutional: No Symptoms Reported Eyes: No Symptoms Reported ENTM: No Symptoms Reported, Nose Congestion Respiratoy: Productive Cough, Short of Breath, Wheezing. negative: No Symptoms Reported, See HPI, Non-Productive Cough, Moist Cough, Dry Cough, Hacking Cough, Barking Cough, Brassy Cough, Orthopnea, Stridor, Hemoptysis, Other Cardiovascular: No Symptoms Reported. negative: See HPI, Chest Pain, Edema, Palpitations, Syncope, Cyanosis, Skin Mottling, Other Gastrointestinal/Abdominal: No Symptoms Reported Genitourinary: No Symptoms Reported. negative: See HPI, Discharge, Dysuria, Frequency, Hematuria, Pain, Bleeding, Other Neurological: No Symptoms Reported Musculoskeletal: No Symptoms Reported Integumentary: No Symptoms Reported Hematologic/Lymphatic: No Symptoms Reported Endocrine: No Symptoms Reported Psychiatric: No Symptoms Reported. negative: See HPI, Anxiety, Depression, Hallucinations, Excessive crying, Suicidal, Other PE - General Limitations: No Limitations General Appearance: Alert, In Distress (slight) - Head Head Exam: Normal Inspection, Atraumatic, Normocephalic - Eyes Eye exam: Normal Appearance, PERRL, EOMI. negative: Scleral Icterus, Conjunctiv al Injection, Nystagmus, Miosis, Mydrasis, Periorbital Swelling, Periorbital Tenderness, Other - ENT ENT Exam: Normal Exam, Normal Oropharynx, Normal External Ear Exam, Mucous Membranes Moist, TM's Normal Bilaterally - Neck Neck Exam: Normal Inspection, Full ROM, Trachea Midline - Chest Chest Inspection: Normal Inspection, Symmetric Chest Wall Rise - Respiratory Respiratory Exam: Normal Lung Sounds Bilat, Prolonged Expiratory Phase, Respir atory Distress (bibasilar rales) Respiratory Exam: Bilateral Wheezing, Bilateral Rhonchi, Bilateral Decreased Breath Sounds, Left Rales, Right Rales - Cardiovascular Cardiovascular Exam: Regular Rate, Normal Rhythm, Normal Heart Sounds - Abdominal Exam Abdominal Exam: Normal Inspection, Normal Bowel Sounds, Soft Abdominal Tenderness: negative: RUQ, RLQ, LUQ, LLQ, Epigastrium, Suprapubic, Diffuse, Mild, Moderate, Severe, Other - Extremities Extremities Exam: Normal Inspection, Full ROM, Normal Capillary Refill. negative: Tenderness, Edema, Joint Swelling, Calf Tenderness, Other - Back Back Exam: Normal Inspection, Full ROM. negative: Tenderness, (R) CVA Tenderness, (L) CVA Tenderness, Muscle Spasm, Paraspinal Tenderness, Vertebral Tenderness, Rashes, (R) Sciatic Notch Tenderness, (L) Sciatic Notch Tendern, (R) Straight Leg Raise, (L) Straight Leg Raise, Other - Neurologic Neurological Exam: Alert, Oriented X3, CN II-XII Intact, Reflexes Normal. negative: Normal Gait (gait not tested) - Psychiatric Psychiatric Exam: Normal Affect, Normal Mood. negative: Depressed, Agitated, Anxious, Flat Affect, Manic, Homicidal Ideation, Suicidal Ideation, Other - Skin Skin Exam: Warm, Dry, Intact, Normal Color - Vital Signs Vitals: Temperature 97.7 F Pulse Rate 116 Respiratory Rate 22 Blood Pressure [Right Arm] 103/55 Blood Pressure [Left Arm] 127/73 Blood Pressure 148/70 O2 Sat by Pulse Oximetry 100 Course - Reevaluation 1st: Improved - Consultation Called: 06:12 Call Returned: 07:02 (Dr. Welsh to admit) - Education/Counseling Education/Counseling: Patient, Family Educated On: Treatment, Diagnosis, Needs for Follow Up ROR - Labs Reviewed Laboratory Results Reviewed?: Yes (All labs and x-ray results reviewed and discussed with patient) Result Diagrams: 01/03/19 05:17 01/03/19 05:17 - XRAY XRAY Interpreted by: Radiologist (CXR: Continued cardiomegaly. Increasing patchy bilateral airspace disease. Persistent cardiac enlargement. Developing bilateral pulmonary infiltrates consistent with pulmonary edema and multifocal pneumonia) - EKG Rate: 115 [place]: Normal Rhythm: NSR Block: None Hypertrophy: LAE ST: Nonsp - Labs Reviewed Laboratory: WBC 12.9 X10^3/uL (3.6-10.0) H 01/03/19 05:17 RBC 5.06 X10^6/uL (3.5-5.4) 01/03/19 05:17 Hgb 10.6 g/dL (12.0-16.0) L 01/03/19 05:17 Hct 34.1 % (36.0-47.0) L 01/03/19 05:17 MCV 67.3 fL (80.0-100.0) L 01/03/19 05:17 MCH 20.9 pg (27.0-34.0) L 01/03/19 05:17 MCHC 31.0 g/dL (33.0-35.0) L 01/03/19 05:17 RDW 25.2 % (11.6-16.5) H 01/03/19 05:17 Plt Count 195 X10^3/uL (150.0-450.0) 01/03/19 05:17 Plt Count Comment Adequate (ADEQUATE) 01/03/19 05:17 MPV 8.6 fL (7.4-11.0) 01/03/19 05:17 Neut % (Auto) 81.4 % (42.0-75.0) H 01/03/19 05:17 Lymph % (Auto) 15.3 % (21.0-51.0) L 01/03/19 05:17 [place] % (Auto) 2.8 % (0.0-13.0) 01/03/19 05:17 Eos % (Auto) 0.3 % (0.9-2.9) L 01/03/19 05:17 Baso % (Auto) 0.2 % (0.2-1.0) 01/03/19 05:17 Neut # (Auto) 10.5 x10^3/uL (2.2-4.8) H 01/03/19 05:17 Lymph # (Auto) 2.0 X10^3/uL (1.3-2.9) 01/03/19 05:17 [place] # (Auto) 0.4 x10^3/uL (0.3-0.8) 01/03/19 05:17 Eos # (Auto) 0.0 x10^3/uL (0.0-0.2) 01/03/19 05:17 Baso # (Auto) 0.0 X10^3/uL (0.0-0.1) 01/03/19 05:17 Absolute Nucleated RBC 0.0 /100WBC 01/03/19 05:17 Plt Morphology Comment Normal (NORMAL) 01/03/19 05:17 RBC Morphology Abnormal (NORMAL) A 01/03/19 05:17 Hypochromasia 2+ A 01/03/19 05:17 Anisocytosis 3+ A 01/03/19 05:17 Microcytosis 1+ A 01/03/19 05:17 Target Cells Present 01/03/19 05:17 INR Target Range - 01/03/19 05:17 INR 1.00 (0.8-1.3) 01/03/19 05:17 APTT 25.8 SECONDS (22.9-36.5) 01/03/19 05:17 PTT Comment - 01/03/19 05:17 D-Dimer 3660 ng/mL (0-400) H* 01/03/19 05:17 Sodium 141 mmol/L (136-145) 01/03/19 05:17 Corrected Sodium TNP 01/03/19 05:17 Potassium 3.6 mmol/L (3.5-5.1) 01/03/19 05:17 Chloride 106 mmol/L (98-107) 01/03/19 05:17 Carbon Dioxide 24.2 mmol/L (21-32) 01/03/19 05:17 BUN 23 mg/dL (7-18) H 01/03/19 05:17 Creatinine 0.71 mg/dL (0.55-1.02) 01/03/19 05:17 Est GFR (MDRD) Af Amer > 60 (>60) 01/03/19 05:17 Est GFR (MDRD) Non-Af > 60 (>60) 01/03/19 05:17 Glucose 91 mg/dL (65-99) 01/03/19 05:17 Calcium 8.9 mg/dL (8.5-10.1) 01/03/19 05:17 Corrected Calcium 10.2 mg/dL (8.5-10.1) H 01/03/19 05:17 Magnesium 1.7 mg/dL (1.7-2.9) 01/03/19 05:17 Total Bilirubin 0.30 mg/dL (0.2-1.0) 01/03/19 05:17 AST 20 Units/L (15-37) 01/03/19 05:17 ALT 7 Units/L (12-78) L 01/03/19 05:17 Alkaline Phosphatase 56 Units/L (46-116) 01/03/19 05:17 Creatine Kinase 106 Units/L (26-192) 01/03/19 05:17 CK-MB (CK-2) 2.0 ng/mL (0-4.0) 01/03/19 05:17 CK/CKMB % Calc 1.9 % (<4) 01/03/19 05:17 Troponin I 0.02 ng/mL (0-1.5) 01/03/19 05:17 B-Natriuretic Peptide 860 pg/mL (0-79) H* 01/03/19 05:17 Total Protein 7.8 g/dL (6.4-8.2) 01/03/19 05:17 Albumin 2.4 g/dL (3.4-5.0) L 01/03/19 05:17 Globulin 5.4 g/dL (2.5-4.5) H 01/03/19 05:17 Albumin/Globulin Ratio 0.4 Ratio (1.1-2.1) L 01/03/19 05:17 - Diagnosis Discharge Problem: Respiratory distress, Multifocal pneumonia, Congestive heart failure, COPD exacerbation Pulmonary edema Qualifiers: Chronicity: acute Qualified Code(s): J81.0 - Acute pulmonary edema - Discharge Plan Disposition: ADMITTED INPATIENT Condition: Stable - Follow ups/Referrals Follow ups/Referrals: Usman Mcclelland [Primary Care Provider] - 3 days - Instructions
[2019-01-03 05:35] LABS: BASOPHILS % (AUTO) 0.2 % (0.2-1.0); EOSINOPHILS % (AUTO) 0.3 % (0.9-2.9); HEMATOCRIT 34.1 % (36.0-47.0); HEMOGLOBIN 10.6 g/dL (12.0-16.0); LYMPHOCYTES % (AUTO) 15.3 % (21.0-51.0); MEAN CORPUSCULAR HEMOGLOBIN 20.9 pg (27.0-34.0); MEAN CORPUSCULAR VOLUME 67.3 fL (80.0-100.0); MEAN PLATELET VOLUME 8.6 fL (7.4-11.0); MONOCYTES # (AUTO) 0.4 x10^3/uL (0.3-0.8); MONOCYTES % (AUTO) 2.8 % (0.0-13.0); NEUTROPHILS # (AUTO) 10.5 x10^3/uL (2.2-4.8); NEUTROPHILS % (AUTO) 81.4 % (42.0-75.0); PLATELET COUNT 195 X10^3/uL (150.0-450.0); RED BLOOD COUNT 5.06 X10^6/uL (3.5-5.4); RED CELL DISTRIBUTION WIDTH 25.2 % (11.6-16.5); WHITE BLOOD COUNT 12.9 X10^3/uL (3.6-10.0)
--- NOTE | 2019-01-03 05:35 | RAD ---
Examination: Portable AP chest History: SOB Comparison 01/01/2019 Findings: Continued cardiomegaly. Increasing patchy bilateral airspace disease. No pneumothorax seen. Impression: Persistent cardiac enlargement. Developing bilateral pulmonary infiltrates consistent with pulmonary edema and/or multifocal pneumonia. Reported By:
[2019-01-03 05:45] LABS: BLOOD UREA NITROGEN 23 mg/dL (7-18); CALCIUM 8.9 mg/dL (8.5-10.1); CARBON DIOXIDE 24.2 mmol/L (21-32); CHLORIDE 106 mmol/L (98-107); CREATININE 0.71 mg/dL (0.55-1.02); SODIUM 141 mmol/L (136-145); TROPONIN I 0.02 ng/mL (0-1.5); eGFR NON BLACK RACES > 60 (>60)
[2019-01-03 05:49] LABS: ALANINE AMINOTRANSFERASE 7 Units/L (12-78); ALBUMIN 2.4 g/dL (3.4-5.0); ALKALINE PHOSPHATASE 56 Units/L (46-116); ASPARTATE AMINO TRANSFERASE 20 Units/L (15-37); CKMB % 1.9 % (<4); COR CA(FOR HYPOALB) 10.2 mg/dL (8.5-10.1); CREATINE KINASE 106 Units/L (26-192); MAGNESIUM 1.7 mg/dL (1.7-2.9); TOTAL PROTEIN 7.8 g/dL (6.4-8.2)
[2019-01-03 05:50] LABS: ANISOCYTOSIS 3+; HYPOCHROMASIA 2+; MICROCYTOSIS 1+; PLATELET MORPHOLOGY COMMENT NORMAL (NORMAL); TARGET CELLS PRESENT
[2019-01-03] MEDS ORDERED: ZOSYN VIAL 3.375 GRAMS 3.375 G in NS 100 ML IV + SPIKE MINIBAG* 100 ML IV ONE (05:59)
[2019-01-03] MEDS ORDERED: NS 100 ML IV + SPIKE MINIBAG* 100 ML IV ONE (06:13)
[2019-01-03] MEDS ORDERED: ZOSYN VIAL 3.375 GRAMS IV ONE (06:13)
[2019-01-03] MEDS ORDERED: NS 250 ML IV 250 ML IV ONE (06:14)
[2019-01-03] MEDS ORDERED: TUSSIONEX PENNKINETIC SUSP PO PRN (07:29)
[2019-01-03] MEDS ORDERED: SALINE 3% 15 ML NEB TX NEB ONE (08:31)
[2019-01-03] MEDS: DUONEB 0.5 MG/3 MG NEB SCH ×4 (08:31→21:00)
[2019-01-03] MEDS: ROCEPHIN VIAL 1 GRAM IVP SCH (08:49)
[2019-01-03] MEDS: ROBITUSSIN DM PO SCH ×4 (08:49→20:09)
[2019-01-03] MEDS: LASIX IVP SCH (08:49)
[2019-01-03] MEDS: LEVAQUIN PREMIX IV 750 MG 750 MG/150 ML BAG IV SCH (08:49)
[2019-01-03] MEDS: LOVENOX INJ 60 MG SYR SC SCH ×2 (08:52→20:07)
[2019-01-03 09:55] LABS: BILIRUBIN,URINE NEGATIVE (NEGATIVE); BLOOD/HEMOGLOBIN,URINE NEGATIVE (NEGATIVE); GLUCOSE, URINE NEGATIVE (NEGATIVE); KETONES,URINE NEGATIVE (NEGATIVE); LEUKOCYTE ESTERASE ,URINE NEGATIVE (NEGATIVE); NITRITES,URINE NEGATIVE (NEGATIVE); PROTEIN,URINE NEGATIVE (NEGATIVE); UROBILINOGEN,URINE NORMAL (NORMAL)
[2019-01-03 09:58] LABS: APPEARANCE,URINE CLEAR (CLEAR); COLOR,URINE YELLOW (YELLOW)
--- NOTE | 2019-01-03 11:57 | DR.H&P ---
H&P - History & Physical for Day of: H&P Date: 01/03/19 - Chief Complaint Chief Complaint: SOB - History of Present Illness History of Present Illness: 38 BF ER ADMISSION WITH CO SOB, WOKE UP VERY SOB COULD NOT GET HER BREATH. PT STATES SHE WAS DC HOME FROM [facility] ON SATURDAY AM. PT HAD CXR IN ER WITH MULTIFOCAL PNEUMONIA. PT HAS PMH OF COPD, LUPUS, OA. PT ADMITTED FOR PNEUMONIA PROTOCOL. - Past Medical History Past Medical History: Arthritis Additional Medical History: LUPUS - Past Surgical History Surgical History: - Family History Family Medical History: NE - Social History Does patient currently use any type of tobacco product: Yes Have you used tobacco products in the last 12 months: Yes Type of Tobacco Use: Cigarettes How many years tobacco product used: 22 Does any household member use tobacco: Yes Alcohol Use: None Drug Use: None - Medications Home Medications: No Known Drug Allergies Allergy (Verified 01/03/19 05:07) CONTINUE taking the following medications Vitamin D 50,000 units PO QWEEK 01/03/19 [History] fluticasone [Flonase Allergy Relief] 2 spray INTRANASAL BID 01/03/19 [History] gabapentin 300 mg PO TID 01/03/19 [History] hydroxychloroquine 200 mg PO DAILY 01/03/19 [History] meloxicam 15 mg PO DAILY 01/03/19 [History] - Review of Systems Constitutional: Fever, Weakness Eyes: No Symptoms Reported ENT: No Symptoms Reported Respiratory: Shortness of Breath, Sputum, Wheezing Cardiovascular: Chest Pain Gastrointestinal: Nausea Genitourinary: No Symptoms Reported Musculoskeletal: Back Pain, Leg Pain Skin: No Symptoms Reported Neurological: No Symptoms Reported - Physical Exam Vital Signs: Temperature 97.8 F Pulse Rate [Right Brachial] 113 Pulse Rate [Left Brachial] 110 Pulse Rate 109 Respiratory Rate 20 Blood Pressure [Right Arm] 103/55 Blood Pressure [Left Arm] 110/66 Blood Pressure 148/70 O2 Sat by Pulse Oximetry 98 Oriented: Normal Eyes: Normal Ear: Normal Nose: Normal Throat: Normal Respiratory: Diminished Throughout Cardiovascular: Tachycardia. negative: Edema : Normal Auscultation: Bowel Sounds: Normal Palpation: Normal Tenderness: Normal Skin: Decreased [place] Musculoskeletal: Back:Thoracic, Back:Lumbar, Tender Psychiatric: Anxiety Affect: Anxious Speech Pattern: Clear, Appropriate - Assessment/Plan (1) Multifocal pneumonia Status: Acute Plan: ADMIT, PNEUMONIA PROTOCOL, IV ATBX, SOLU MEDROL. BLOOD AND SPUTUM CULTURES ORDERED ON ADMISSION. GENTLE IV HYDRATION. RESP CARE, SUPPLEMENTAL O2. VERIFY HOME MEDICATION, ENCOURAGE ORAL HYDRATION (2) Fibromyalgia Status: Acute (3) Lupus Status: Acute (4) Respiratory distress Status: Acute - Allergies Allergies/Adverse Reactions: Allergies Allergy/AdvReac Type Severity Reaction Status Date / Time No Known Drug Allergies Allergy Verified 01/03/19 05:07
[2019-01-03] MEDS: NS 1/2 1000 ML IV 1,000 ML IV SCH (18:49)
[2019-01-03] MEDS ORDERED: NS 1/2 1000 ML IV 1,000 ML IV ONE (18:51)
[2019-01-03] MEDS: PERCOCET TAB 5/325 MG PO PRN (19:49)
[2019-01-03] MEDS ORDERED: KLOR-CON PO PRN (21:29)
[2019-01-03] MEDS ORDERED: POTASSIUM CHLORIDE LIQ 20 MEQ UDC PO PRN (21:29)
[2019-01-03] MEDS ORDERED: K-RIDER 10 MEQ/NS 100 ML 10 MEQ/100 ML BAG IV PRN (21:29)
[2019-01-03] MEDS ORDERED: POTASSIUM CHL 60 MEQ/NS 0.45% 500 ML IV PRN (21:29)
[2019-01-03] MEDS ORDERED: POTASSIUM CHL 40 MEQ/NS 0.45% 500 ML IV PRN (21:29)
[2019-01-03] MEDS ORDERED: MICRO K EXTEN CAP 10 MEQ PO PRN (21:29)
[2019-01-03] MEDS: K-DUR TAB 20 MEQ PO PRN (21:50)
[2019-01-03] MEDS: MAGNESIUM SULFATE 1 GRAM/100 mL PREMIX 1 GM/100 ML BAG IV PRN ×2 (21:51→23:01)
[2019-01-04] MEDS: DUONEB 0.5 MG/3 MG NEB SCH ×6 (01:00→20:16)
[2019-01-04] MEDS ORDERED: PEPCID 20 MG IV PREMIX* 20 MG/50 ML BAG IV ONE (03:13)
[2019-01-04] MEDS: PEPCID 20 MG IV PREMIX* 20 MG/50 ML BAG IV SCH ×3 (03:15→20:20)
[2019-01-04 04:56] LABS: BASOPHILS % (AUTO) 0.3 % (0.2-1.0); EOSINOPHILS % (AUTO) 0.4 % (0.9-2.9); HEMOGLOBIN 9.1 g/dL (12.0-16.0); LYMPHOCYTES # (AUTO) 2.2 X10^3/uL (1.3-2.9); LYMPHOCYTES % (AUTO) 24.6 % (21.0-51.0); MEAN CORPUSCULAR HEMOGLOBIN 20.9 pg (27.0-34.0); MEAN CORPUSCULAR HGB CONC 31.3 g/dL (33.0-35.0); MEAN CORPUSCULAR VOLUME 66.8 fL (80.0-100.0); MEAN PLATELET VOLUME 8.4 fL (7.4-11.0); MONOCYTES # (AUTO) 0.5 x10^3/uL (0.3-0.8); MONOCYTES % (AUTO) 5.5 % (0.0-13.0); NEUTROPHILS # (AUTO) 6.1 x10^3/uL (2.2-4.8); NEUTROPHILS % (AUTO) 69.2 % (42.0-75.0); PLATELET COUNT 165 X10^3/uL (150.0-450.0); RED BLOOD COUNT 4.34 X10^6/uL (3.5-5.4); RED CELL DISTRIBUTION WIDTH 25.7 % (11.6-16.5); WHITE BLOOD COUNT 8.8 X10^3/uL (3.6-10.0)
[2019-01-04 05:07] LABS: ALBUMIN 2.2 g/dL (3.4-5.0); ALKALINE PHOSPHATASE 49 Units/L (46-116); ASPARTATE AMINO TRANSFERASE < 6 Units/L (15-37); BLOOD UREA NITROGEN 17 mg/dL (7-18); CALCIUM 8.5 mg/dL (8.5-10.1); CARBON DIOXIDE 26.7 mmol/L (21-32); CHLORIDE 104 mmol/L (98-107); COR CA(FOR HYPOALB) 9.9 mg/dL (8.5-10.1); CREATININE 0.78 mg/dL (0.55-1.02); MAGNESIUM 2.3 mg/dL (1.7-2.9); SODIUM 140 mmol/L (136-145); TOTAL PROTEIN 6.9 g/dL (6.4-8.2); eGFR NON BLACK RACES > 60 (>60)
[2019-01-04 05:14] LABS: ANISOCYTOSIS 3+; HYPOCHROMASIA 2+; MICROCYTOSIS 1+; PLATELET MORPHOLOGY COMMENT NORMAL (NORMAL); TARGET CELLS PRESENT
[2019-01-04 05:16] LABS: ALANINE AMINOTRANSFERASE 16 Units/L (12-78)
--- NOTE | 2019-01-04 07:06 | RAD ---
HISTORY: Shortness of breath Study: Two-view chest Comparison: Yesterday Findings: The trachea is midline. The cardiac silhouette is stable. The lungs demonstrate improved aeration with interval decrease in size in infiltrates in the upper lobes and right lower lobe. These findings suggest improving pulmonary edema rather than pneumonia given the Quick interval change.. The bony thorax is unremarkable. IMPRESSION: 1. Improving bilateral infiltrates. Reported By:
[2019-01-04] MEDS: LASIX IVP SCH (09:00)
[2019-01-04] MEDS: LEVAQUIN PREMIX IV 750 MG 750 MG/150 ML BAG IV SCH (09:01)
[2019-01-04] MEDS: LOVENOX INJ 60 MG SYR SC SCH ×2 (09:01→20:21)
[2019-01-04] MEDS: ROCEPHIN VIAL 1 GRAM IVP SCH (09:02)
[2019-01-04] MEDS: ROBITUSSIN DM PO SCH ×4 (09:02→20:27)
[2019-01-04] MEDS: K-DUR TAB 20 MEQ PO PRN (09:03)
[2019-01-04] MEDS ORDERED: PATIENT'S HOME MEDICATION (Oxycodone-Acetaminophen [Oxycodone-Acetaminophen] 1 TAB) PO PRN (13:26)
[2019-01-04] MEDS: HEMOCYTE-PLUS PO SCH (14:40)
[2019-01-04] MEDS: SOLU-Medrol 40 MG VIAL IVP SCH ×2 (14:48→21:48)
[2019-01-04] MEDS: MOBIC TAB 15 MG PO SCH (15:26)
[2019-01-04] MEDS: CYMBALTA PO SCH (15:26)
[2019-01-04] MEDS: NEURONTIN CAP 300 MG PO SCH ×2 (15:27→21:49)
[2019-01-04] MEDS: PLAQUENIL PO SCH (15:27)
[2019-01-04] MEDS: NS 1/2 1000 ML IV 1,000 ML IV SCH (15:45)
[2019-01-04] MEDS: PROTONIX TAB 40 MG PO SCH (15:45)
[2019-01-04] MEDS: FLONASE NASAL SPRAY ENOSTRIL SCH (20:20)
[2019-01-04] MEDS: PERCOCET TAB 5/325 MG PO PRN (20:22)
[2019-01-04] MEDS: SOMA TAB 350 MG PO SCH (20:22)
[2019-01-04] MEDS: ZANTAC PO SCH (20:26)
[2019-01-04] MEDS: COLACE CAP 100 MG PO SCH (20:27)
[2019-01-04] MEDS ORDERED: PREDNISONE TAB 10 MG PO SCH (21:00)
[2019-01-05] MEDS: DUONEB 0.5 MG/3 MG NEB SCH ×6 (00:40→20:47)
[2019-01-05 05:12] LABS: BASOPHILS % (AUTO) 0.5 % (0.2-1.0); EOSINOPHILS % (AUTO) 0.2 % (0.9-2.9); HEMATOCRIT 29.7 % (36.0-47.0); HEMOGLOBIN 9.1 g/dL (12.0-16.0); LYMPHOCYTES # (AUTO) 0.8 X10^3/uL (1.3-2.9); LYMPHOCYTES % (AUTO) 8.9 % (21.0-51.0); MEAN CORPUSCULAR HGB CONC 30.7 g/dL (33.0-35.0); MEAN CORPUSCULAR VOLUME 68.3 fL (80.0-100.0); MEAN PLATELET VOLUME 8.8 fL (7.4-11.0); MONOCYTES # (AUTO) 0.3 x10^3/uL (0.3-0.8); MONOCYTES % (AUTO) 3.9 % (0.0-13.0); NEUTROPHILS # (AUTO) 7.5 x10^3/uL (2.2-4.8); NEUTROPHILS % (AUTO) 86.5 % (42.0-75.0); PLATELET COUNT 177 X10^3/uL (150.0-450.0); RED BLOOD COUNT 4.35 X10^6/uL (3.5-5.4); RED CELL DISTRIBUTION WIDTH 25.4 % (11.6-16.5); WHITE BLOOD COUNT 8.7 X10^3/uL (3.6-10.0)
[2019-01-05 05:14] LABS: ALANINE AMINOTRANSFERASE 19 Units/L (12-78); ALBUMIN 2.3 g/dL (3.4-5.0); ALKALINE PHOSPHATASE 47 Units/L (46-116); ASPARTATE AMINO TRANSFERASE 27 Units/L (15-37); BLOOD UREA NITROGEN 19 mg/dL (7-18); CALCIUM 8.9 mg/dL (8.5-10.1); CARBON DIOXIDE 26.6 mmol/L (21-32); COR CA(FOR HYPOALB) 10.3 mg/dL (8.5-10.1); COR NA(FOR HYPERGLY) 139 mmol/L (136-145); CREATININE 0.72 mg/dL (0.55-1.02); SODIUM 139 mmol/L (136-145); TOTAL PROTEIN 7.5 g/dL (6.4-8.2); eGFR NON BLACK RACES > 60 (>60)
[2019-01-05] MEDS: SOLU-Medrol 40 MG VIAL IVP SCH ×3 (05:16→20:42)
[2019-01-05] MEDS: NS 1/2 1000 ML IV 1,000 ML IV SCH ×3 (05:17→20:43)
[2019-01-05] MEDS: NEURONTIN CAP 300 MG PO SCH ×3 (05:17→22:15)
[2019-01-05 05:21] LABS: ANISOCYTOSIS 3+; HYPOCHROMASIA 2+; MICROCYTOSIS 1+; PLATELET MORPHOLOGY COMMENT NORMAL (NORMAL); TARGET CELLS PRESENT
[2019-01-05 06:37] LABS: CHLORIDE 99 mmol/L (98-107)
--- NOTE | 2019-01-05 06:54 | RAD ---
History: Shortness of breath Study: AP chest Comparison: Yesterday Findings: There is blunting of the right costophrenic angle. There is improved vascular congestion. There is mild interstitial edema. Impression: Resolving vascular congestion and improving interstitial edema with a persistent but small right pleural effusion Reported By:
[2019-01-05] MEDS ORDERED: NS 1/2 1000 ML IV 1,000 ML IV ONE ×2 (08:52→20:37)
[2019-01-05] MEDS: LEVAQUIN PREMIX IV 750 MG 750 MG/150 ML BAG IV SCH ×2 (09:14→10:00)
[2019-01-05] MEDS: HEMOCYTE-PLUS PO SCH (09:15)
[2019-01-05] MEDS: PROTONIX TAB 40 MG PO SCH (09:15)
[2019-01-05] MEDS: ROBITUSSIN DM PO SCH ×4 (09:15→20:42)
[2019-01-05] MEDS: PLAQUENIL PO SCH (09:16)
[2019-01-05] MEDS: PEPCID 20 MG IV PREMIX* 20 MG/50 ML BAG IV SCH ×2 (09:16→20:42)
[2019-01-05] MEDS: COLACE CAP 100 MG PO SCH ×2 (09:16→20:43)
[2019-01-05] MEDS: SOMA TAB 350 MG PO SCH ×2 (09:16→20:43)
[2019-01-05] MEDS: MOBIC TAB 15 MG PO SCH (09:16)
[2019-01-05] MEDS: ZANTAC PO SCH ×2 (09:16→20:43)
[2019-01-05] MEDS: ROCEPHIN VIAL 1 GRAM IVP SCH (09:16)
[2019-01-05] MEDS: LASIX IVP SCH (09:16)
[2019-01-05] MEDS: LOVENOX INJ 60 MG SYR SC SCH ×2 (09:18→20:44)
[2019-01-05] MEDS: CYMBALTA PO SCH (09:28)
[2019-01-05] MEDS: FLONASE NASAL SPRAY ENOSTRIL SCH ×2 (09:28→20:44)
[2019-01-05] MEDS: PERCOCET TAB 5/325 MG PO PRN (20:51)
[2019-01-06] MEDS: DUONEB 0.5 MG/3 MG NEB SCH ×4 (01:00→12:11)
[2019-01-06 05:24] LABS: BASOPHILS % (AUTO) 0.2 % (0.2-1.0); HEMATOCRIT 27.1 % (36.0-47.0); HEMOGLOBIN 8.4 g/dL (12.0-16.0); LYMPHOCYTES # (AUTO) 1.3 X10^3/uL (1.3-2.9); LYMPHOCYTES % (AUTO) 8.1 % (21.0-51.0); MEAN CORPUSCULAR HGB CONC 30.9 g/dL (33.0-35.0); MEAN CORPUSCULAR VOLUME 67.9 fL (80.0-100.0); MEAN PLATELET VOLUME 8.6 fL (7.4-11.0); MONOCYTES # (AUTO) 0.7 x10^3/uL (0.3-0.8); MONOCYTES % (AUTO) 4.6 % (0.0-13.0); NEUTROPHILS # (AUTO) 14.1 x10^3/uL (2.2-4.8); NEUTROPHILS % (AUTO) 87.1 % (42.0-75.0); PLATELET COUNT 202 X10^3/uL (150.0-450.0); RED CELL DISTRIBUTION WIDTH 25.8 % (11.6-16.5); WHITE BLOOD COUNT 16.1 X10^3/uL (3.6-10.0)
[2019-01-06] MEDS: NEURONTIN CAP 300 MG PO SCH (05:27)
[2019-01-06] MEDS: SOLU-Medrol 40 MG VIAL IVP SCH (05:27)
[2019-01-06 05:42] LABS: ANISOCYTOSIS 3+; HYPOCHROMASIA 2+; MICROCYTOSIS 1+; PLATELET MORPHOLOGY COMMENT NORMAL (NORMAL); TARGET CELLS PRESENT
--- NOTE | 2019-01-06 05:54 | RAD ---
History: Shortness of breath Study: Portable AP chest Comparison: Yesterday Findings: The heart size is prominent. There is persistent unchanged vascular congestion. A right pleural effusion is decreased in size. Impression: Persistent slightly improved vascular congestion with resolving small right pleural effusion Reported By:
[2019-01-06] MEDS: NS 1/2 1000 ML IV 1,000 ML IV SCH (06:58)
[2019-01-06 07:55] LABS: ALANINE AMINOTRANSFERASE 21 Units/L (12-78); ALBUMIN 2.3 g/dL (3.4-5.0); ALKALINE PHOSPHATASE 45 Units/L (46-116); ASPARTATE AMINO TRANSFERASE 20 Units/L (15-37); BLOOD UREA NITROGEN 18 mg/dL (7-18); CALCIUM 9.2 mg/dL (8.5-10.1); CARBON DIOXIDE 25.9 mmol/L (21-32); CHLORIDE 103 mmol/L (98-107); COR CA(FOR HYPOALB) 10.6 mg/dL (8.5-10.1); CREATININE 0.79 mg/dL (0.55-1.02); SODIUM 137 mmol/L (136-145); TOTAL PROTEIN 7.1 g/dL (6.4-8.2); eGFR NON BLACK RACES > 60 (>60)
[2019-01-06] MEDS: PEPCID 20 MG IV PREMIX* 20 MG/50 ML BAG IV SCH (09:45)
[2019-01-06] MEDS: LASIX IVP SCH (09:45)
[2019-01-06] MEDS: MOBIC TAB 15 MG PO SCH (09:48)
[2019-01-06] MEDS: PROTONIX TAB 40 MG PO SCH (09:48)
[2019-01-06] MEDS: PLAQUENIL PO SCH (09:48)
[2019-01-06] MEDS: SOMA TAB 350 MG PO SCH (09:48)
[2019-01-06] MEDS: HEMOCYTE-PLUS PO SCH (09:48)
[2019-01-06] MEDS: ZANTAC PO SCH (09:48)
[2019-01-06] MEDS: ROBITUSSIN DM PO SCH (09:48)
[2019-01-06] MEDS: COLACE CAP 100 MG PO SCH (09:48)
[2019-01-06] MEDS: LOVENOX INJ 60 MG SYR SC SCH (09:49)
[2019-01-06] MEDS: CYMBALTA PO SCH (10:01)
[2019-01-06] MEDS: FLONASE NASAL SPRAY ENOSTRIL SCH (10:01)
[2019-01-06] MEDS: ROCEPHIN VIAL 1 GRAM IVP SCH (10:02)
[2019-01-06] MEDS: LEVAQUIN PREMIX IV 750 MG 750 MG/150 ML BAG IV SCH (10:47)
[2019-01-06 12:58] VITALS: BP 103/53
[2019-01-08] MEDS ORDERED: VITAMIN D (1.25MG) PO SCH (09:00)
== END 2019-01-06 12:35 | disposition home or self-care (01) | DRG 193 ==
LOC: ER 04:50 → MED/SURG 07:30
PROVIDERS: ADMIT Internal Medicine; ATTEND Internal Medicine
DX: J18.8 Other pneumonia, unspecified organism; J81.0 Acute pulmonary edema; R13.11 Dysphagia, oral phase; I50.9 Heart failure, unspecified; R94.31 Abnormal electrocardiogram [ECG] [EKG]; R06.03 Acute respiratory distress; M32.8 Other forms of systemic lupus erythematosus; J44.1 Chronic obstructive pulmonary disease with (acute) exacerbation; M79.7 Fibromyalgia
CPT/HCPCS: 36415; 71010; 71020; 71045; 71046; 80053; 81003; 82550; 82553; 83735; 83880; 84132; 84484; 85025; 85378; 85610; 85652; 85730; 86140; 87040; 87086; 93005; 94640; 94760; 96365; 96374; 96375; 99221; 99231; 99283; 99284; A4216; A4222; S0028; J0696; J1650; J1940; J1956; J2543; J2920; J2930; J3475; J7050; J7620

== ENCOUNTER 2021-03-06 17:54 | Inpatient (IN) ==
[2021-03-06 18:00] VITALS: BMI 22.3
[2021-03-06 18:44] LABS: BASOPHILS # (AUTO) 0.1 X10^3/uL (0.0-0.1); MEAN PLATELET VOLUME 8.4 fL (7.4-11.0); MONOCYTES # (AUTO) 0.3 x10^3/uL (0.3-0.8)
[2021-03-06 18:52] LABS: BASOPHILS % (AUTO) 0.6 % (0.2-1.0); EOSINOPHILS % (AUTO) 0.2 % (0.9-2.9); LYMPHOCYTES # (AUTO) 1.4 X10^3/uL (1.3-2.9); LYMPHOCYTES % (AUTO) 14.1 % (21.0-51.0); MEAN CORPUSCULAR HEMOGLOBIN 15.9 pg (27.0-34.0); MEAN CORPUSCULAR HGB CONC 27.3 g/dL (33.0-35.0); MONOCYTES % (AUTO) 2.9 % (0.0-13.0); NEUTROPHILS # (AUTO) 8.4 x10^3/uL (2.2-4.8); NEUTROPHILS % (AUTO) 82.2 % (42.0-75.0); PLATELET COUNT 278 X10^3/uL (150.0-450.0); RED BLOOD COUNT 3.14 X10^6/uL (3.5-5.4); RED CELL DISTRIBUTION WIDTH 22.6 % (11.6-16.5); WHITE BLOOD COUNT 10.2 X10^3/uL (3.6-10.0)
[2021-03-06 18:54] LABS: ALANINE AMINOTRANSFERASE 17 Units/L (12-78); ALBUMIN 3.1 g/dL (3.4-5.0); ALKALINE PHOSPHATASE 66 Units/L (46-116); ASPARTATE AMINO TRANSFERASE 18 Units/L (15-37); BLOOD UREA NITROGEN 26 mg/dL (7-18); CALCIUM 8.6 mg/dL (8.5-10.1); CARBON DIOXIDE 25.7 mmol/L (21-32); CHLORIDE 109 mmol/L (98-107); COR CA(FOR HYPOALB) 9.3 mg/dL (8.5-10.1); CREATININE 1.11 mg/dL (0.55-1.02); SODIUM 143 mmol/L (136-145); TOTAL PROTEIN 7.6 g/dL (6.4-8.2); eGFR NON BLACK RACES 57 (>60)
[2021-03-06 18:56] LABS: HEMATOCRIT 18.2 % (36.0-47.0)
--- NOTE | 2021-03-06 19:19 | DR.GENAD ---
HPI Time Seen Time Seen by Provider: 03/06/21 19:14 PCP Primary Care Physician: Stas HPI Comment HPI Comment: PATIENT IS 45 YR OLD FEMALE IN ER INCREASING FATIGUE AM\ND WEAKNESS AND LOW HEMOGLOBIN. SHE HAD LAB DONE IN [facility] OFFICE AND HEMOGLOBIN CAME BACK 5.6 AND IS HERE FOR FURTHER EVALUATION. DENEIES MELENA OR HEMORRHAGIA. Complaint/Symptoms Chief Complaint Doctors Comments: WEAKNESS, LOW HEMOGLOBIN LEVEL. Chief Complaint:: Pt sent by PCP for hgb 5.6. This lab was drawn 03/02/21. Pt reports feeling fatigued. COVID-19 Coronavirus risk:travel/contact w/high risk person: No Has patient experienced Coronavirus symptoms: No Nurses notes reviewed Nurses Notes Review: Yes Source History Provided: Patient Mode of Arrival Mode of Arrival: Ambulatory Timing Onset of Chief Complaint: 03/02/21 Came on: Gradually Duration Duration: Constant Duration: Weeks Modifying Factors Worsens:: EXERTION Improves:: REST Associated Signs and Symptoms Associated Signs and Symptoms: WEAKNESS Other History Other History: LUPUS. PMH PMH Past Medical History: Yes Past Medical History: Arthritis Past Medical History Comment: Lupus Past Surgical History: Yes Surgical History: and CABG/Valve Surgery Family History History of Family Medical Conditions: Yes Family Medical History: [place] Social History Does patient currently use any type of tobacco product: Yes Have you used tobacco products in the last 12 months: Yes Type of Tobacco Use: Cigarettes Does any household member use tobacco: No Alcohol Use: None Do you use any recreational Drugs:: No Lives With: Family Lives Where: Home Travel Risk Coronavirus risk:travel/contact w/high risk person: No Has patient experienced Coronavirus symptoms: No Infectious screening In the last 2 months have you had wt loss of >10#?: NO Have you had fever, night sweats or hemotysis?: No Have you traveled outside the country in the last 6 months?: No Isolation: Standard ROS Review of Systems Constitutional: See HPI, Weakness and Fatigue Eyes: No Symptoms Reported and See HPI; negative Blurred Vision and Diplopia ENTM: No Symptoms Reported and See HPI; negative Nose Discharge and Nose Congestion Respiratoy: No Symptoms Reported and See HPI; negative Moist Cough, Short of Breath and Wheezing Cardiovascular: No Symptoms Reported and See HPI; negative Chest Pain Gastrointestinal/Abdominal: No Symptoms Reported and See HPI; negative Abdominal Pain, Diarrhea and Vomiting Genitourinary: No Symptoms Reported and See HPI; negative Dysuria, Hematuria and Bleeding Neurological: See HPI and Weakness; negative Headache and Dizziness Musculoskeletal: See HPI, Joint Pain and Joint Swelling; negative Back Pain Integumentary: No Symptoms Reported and See HPI; negative Change in Color, Rash and Juandice Hematologic/Lymphatic: See HPI, Anemia and Easy Bruising; negative Swollen Glands Endocrine: No Symptoms Reported and See HPI; negative Increased Thirst and Increased Urine Psychiatric: No Symptoms Reported and See HPI All Other Systems: Reviewed and Negative PE Vital Signs Vitals: Temperature 98.0 F Pulse Rate 88 Respiratory Rate 16 Blood Pressure [Right Arm] 136/97 Blood Pressure [Left Arm] 170/90 Blood Pressure 86/47 O2 Sat by Pulse Oximetry 100 General Limitations: No Limitations General Appearance: Alert and In No Apparent Distress Head Head Exam: Normal Inspection and Atraumatic Eyes Eye exam: Normal Appearance, PERRL and EOMI; negative Scleral Icterus and Conjunctival Injection (PALE CONJUCTIVA) ENT ENT Exam: Normal Exam, Normal Oropharynx, Normal External Ear Exam and TM's Normal Bilaterally External Ear Exam: Normal External Inspection; negative Mastoid Tenderness TM/Canal Exam: Bilateral: Normal Nose Exam: Normal Nose Exam Mouth Exam: Normal Inspection; negative Lip Swelling and Tongue Swelling Throat Exam: Normal Inspection; negative Tonsillar Erythema, Tonsillomegaly and Tonsillar Exudate Neck Neck Exam: Normal Inspection and Trachea Midline; negative Tenderness and Lymphadenopathy Chest Chest Inspection: Normal Inspection and Symmetric Chest Wall Rise; negative Tenderness Respiratory Respiratory Exam: Normal Lung Sounds Bilat; negative Accessory Muscle Use, Chest Wall Tenderness and Respiratory Distress Respiratory Exam: Bilateral: Clear to Auscultation Cardiovascular Cardiovascular Exam: Regular Rate, Normal Rhythm and Normal Heart Sounds; negative Systolic Murmur and Diastolic Murmur Abdominal Exam Abdominal Exam: Normal Inspection, Normal Bowel Sounds and Soft; negative Tenderness Extremities Extremities Exam: Normal Inspection and Normal Capillary Refill; negative Tenderness and Calf Tenderness Back Back Exam: Normal Inspection; negative (R) CVA Tenderness and (L) CVA Tenderness Neurologic Neurological Exam: Alert, Oriented X3 and CN II-XII Intact; negative Motor Sensory Deficit Psychiatric Psychiatric Exam: Normal Affect and Normal Mood Skin Skin Exam: Warm, Dry, Intact and Normal Color MDM Additional Information Additional Information Obtained From: Old Records Differential Diagnosis Differential Diagnosis: ANEMIA, FATIGUE/WEAKNESS, LUPUS. COURSE Treatment Treatment: SEE ORDERS. Consultation Consultation Comments: DISCUSSED PATIENT WITH DR. KILPATRICK. KE WILL ADMIT PATIENT. Education/Counseling Education/Counseling: Patient Educated On: Diagnosis ROR Labs Reviewed Laboratory Results Reviewed?: Yes Result Diagrams: 03/07/21 09:18 03/07/21 09:18 Laboratory: WBC 10.2 X10^3/uL (3.6-10.0) H 03/06/21 18:30 RBC 3.14 X10^6/uL (3.5-5.4) L 03/06/21 18:30 Hgb 5.0 g/dL (12.0-16.0) L* 03/06/21 18:30 Hct 18.2 % (36.0-47.0) L* 03/06/21 18:30 MCV 58.0 fL (80.0-100.0) L 03/06/21 18:30 MCH 15.9 pg (27.0-34.0) L 03/06/21 18:30 MCHC 27.3 g/dL (33.0-35.0) L 03/06/21 18:30 RDW 22.6 % (11.6-16.5) H 03/06/21 18:30 Plt Count 278 X10^3/uL (150.0-450.0) 03/06/21 18:30 Plt Count Comment Adequate (ADEQUATE) 03/06/21 18:30 MPV 8.4 fL (7.4-11.0) 03/06/21 18:30 Neut % (Auto) 82.2 % (42.0-75.0) H 03/06/21 18:30 Lymph % (Auto) 14.1 % (21.0-51.0) L 03/06/21 18:30 [place] % (Auto) 2.9 % (0.0-13.0) 03/06/21 18:30 Eos % (Auto) 0.2 % (0.9-2.9) L 03/06/21 18:30 Baso % (Auto) 0.6 % (0.2-1.0) 03/06/21 18:30 Neut # (Auto) 8.4 x10^3/uL (2.2-4.8) H 03/06/21 18:30 Lymph # (Auto) 1.4 X10^3/uL (1.3-2.9) 03/06/21 18:30 [place] # (Auto) 0.3 x10^3/uL (0.3-0.8) 03/06/21 18:30 Eos # (Auto) 0.0 x10^3/uL (0.0-0.2) 03/06/21 18:30 Baso # (Auto) 0.1 X10^3/uL (0.0-0.1) 03/06/21 18:30 Absolute Nucleated RBC 0.3 /100WBC 03/06/21 18:30 Plt Morphology Comment Normal (NORMAL) 03/06/21 18:30 RBC Morphology Abnormal (NORMAL) A 03/06/21 18:30 Hypochromasia 3+ A 03/06/21 18:30 Anisocytosis 3+ A 03/06/21 18:30 Microcytosis 3+ A 03/06/21 18:30 Acanthocytes (Spur) 2+ 03/06/21 18:30 Schistocytes 2+ A 03/06/21 18:30 Sodium 143 mmol/L (136-145) 03/06/21 18:30 Corrected Sodium TNP 03/06/21 18:30 Potassium 4.0 mmol/L (3.5-5.1) 03/06/21 18:30 Chloride 109 mmol/L (98-107) H 03/06/21 18:30 Carbon Dioxide 25.7 mmol/L (21-32) 03/06/21 18:30 BUN 26 mg/dL (7-18) H 03/06/21 18:30 Creatinine 1.11 mg/dL (0.55-1.02) H 03/06/21 18:30 Est GFR (MDRD) Af Amer > 60 (>60) 03/06/21 18:30 Est GFR (MDRD) Non-Af 57 (>60) L 03/06/21 18:30 Glucose 97 mg/dL (65-99) 03/06/21 18:30 Calcium 8.6 mg/dL (8.5-10.1) 03/06/21 18:30 Corrected Calcium 9.3 mg/dL (8.5-10.1) 03/06/21 18:30 Iron 9 ug/dL (50-175) L 03/06/21 18:30 Transferrin 284 mg/dL (202-364) 03/06/21 18:30 Ferritin 12 ng/mL (8-252) 03/06/21 18:30 Total Bilirubin 0.10 mg/dL (0.2-1.0) L 03/06/21 18:30 AST 18 Units/L (15-37) 03/06/21 18:30 ALT 17 Units/L (12-78) 03/06/21 18:30 Alkaline Phosphatase 66 Units/L (46-116) 03/06/21 18:30 Total Protein 7.6 g/dL (6.4-8.2) 03/06/21 18:30 Albumin 3.1 g/dL (3.4-5.0) L 03/06/21 18:30 Globulin 4.5 g/dL (2.5-4.5) 03/06/21 18:30 Albumin/Globulin Ratio 0.7 Ratio (1.1-2.1) L 03/06/21 18:30 Vitamin B12 512 pg/mL (193-986) 03/06/21 18:30 Folate 6.5 ng/mL (>8.6) L 03/06/21 18:30 HCG, Qual Negative <10 mIU/mL 03/06/21 18:30 SARS CoV-2 RNA Rapid RYAN Negative (NEGATIVE) 03/06/21 21:00 Blood Type B POSITIVE 03/06/21 18:30 Antibody Screen Negative 03/06/21 18:30 Crossmatch See Detail 03/06/21 18:30 Opioid Opioid Risk Tool Age (Higinio box if 16-45): No History of Preadolescent Sexual Abuse: No Total: 0 Total Score Risk Category: Low Risk Copyright: Hunter NGUYEN predicting aberrant behaviors Diagnosis Discharge Problem: Lupus Anemia Qualifiers: Anemia type: unspecified type Qualified Code(s): D64.9 - Anemia, unspecified
[2021-03-06 19:20] LABS: PLATELET MORPHOLOGY COMMENT NORMAL (NORMAL)
[2021-03-06 19:21] LABS: ANISOCYTOSIS 3+; HYPOCHROMASIA 3+; MICROCYTOSIS 3+
[2021-03-06 19:22] LABS: SCHISTOCYTES 2+
[2021-03-06 19:52] LABS: SERUM PREGNANCY TEST, QUAL NEGATIVE <10 mIU/mL
[2021-03-06] MEDS ORDERED: SOLU MEDROL IV ONE (21:14)
[2021-03-06] MEDS ORDERED: DEXTROSE 5% IV ONE (21:14)
[2021-03-06] MEDS ORDERED: NS 500 ML IV 500 ML IV ONE (21:25)
[2021-03-06] MEDS ORDERED: NS 1000 ML 1,000 ML IV SCH (23:00)
[2021-03-06] MEDS ORDERED: NS 100 ML IV 100 ML IV ONE (23:34)
[2021-03-07] MEDS ORDERED: SOLU-Cortef INJ ONE (00:03)
[2021-03-07] MEDS ORDERED: D5W 250 ML IV 500 ML IV ONE (00:03)
[2021-03-07] MEDS ORDERED: NS 100 ML IV 100 ML IV ONE (05:12)
--- NOTE | 2021-03-07 07:52 | DR.H&P ---
H&P History & Physical for Day of: H&P Date: 03/07/21 Chief Complaint Chief Complaint: Dizziness Anemia Allergies Allergies Allergy/AdvReac Type Severity Reaction Status Date / Time IV DYE Allergy Uncoded 01/20/19 21:16 History of Present Illness History of Present Illness: Pt is a 40 year old female past medical history of Lupus and anemia. She presented to the ED after having labs drawn from her pcp and was discovered to be severely anemic with a hemoglobin of 5.0. Pt reports she was having symptoms of fatigue, dizziness, and lightheaded. Denies any active bleeding. Has had same problem in the past that required blood transfusion. She was ordered 2 units packed red blood cells. Labs/imaging this morning: Wbc 9.9, Hgb 8.5, Plt 236, Na 141, K 4.1, Creatinine 0.74, Glucose 120. This morning patient states symptoms have resolved, her Hgb responded well h owever she just completed receiving transfusion. Pt did not want to wait for next Hgb to be drawn, insisting to nursing that she was immediately leaving. Pt signed AMA and left the hospital. Past Medical History Past Medical History: Arthritis Additional Medical History: LUPUS Past Surgical History Surgical History: ORIENTOR Surgery and Other Family History Family Medical History: Hypertension Social History Does patient currently use any type of tobacco product: Yes Have you used tobacco products in the last 12 months: Yes Type of Tobacco Use: Cigarettes How many years tobacco product used: 15 Does any household member use tobacco: No Alcohol Use: None Drug Use: None Medications Home Medications: IV DYE Allergy (Uncoded 01/20/19 21:16) Labs Result Diagrams: 03/07/21 09:18 03/07/21 09:18 Labs: Laboratory WBC 10.2 X10^3/uL (3.6-10.0) H 03/06/21 18:30 RBC 3.14 X10^6/uL (3.5-5.4) L 03/06/21 18:30 Hgb 5.0 g/dL (12.0-16.0) L* 03/06/21 18:30 Hct 18.2 % (36.0-47.0) L* 03/06/21 18:30 MCV 58.0 fL (80.0-100.0) L 03/06/21 18:30 MCH 15.9 pg (27.0-34.0) L 03/06/21 18:30 MCHC 27.3 g/dL (33.0-35.0) L 03/06/21 18: RDW 22.6 % (11.6-16.5) H 03/06/21 18:30 Plt Count 278 X10^3/uL (150.0-450.0) 03/06/21 18: Plt Count Comment Adequate (ADEQUATE) 03/06/21 18: MPV 8.4 fL (7.4-11.0) 03/06/21 18: Neut % (Auto) 82.2 % (42.0-75.0) H 03/06/21 18: Lymph % (Auto) 14.1 % (21.0-51.0) L 03/06/21 18: [place] % (Auto) 2.9 % (0.0-13.0) 03/06/21 18: Eos % (Auto) 0.2 % (0.9-2.9) L 03/06/21 18: Baso % (Auto) 0.6 % (0.2-1.0) 03/06/21 18:30 Neut # (Auto) 8.4 x10^3/uL (2.2-4.8) H 03/06/21 18:30 Lymph # (Auto) 1.4 X10^3/uL (1.3-2.9) 03/06/21 18:30 [place] # (Auto) 0.3 x10^3/uL (0.3-0.8) 03/06/21 18: Eos # (Auto) 0.0 x10^3/uL (0.0-0.2) 03/06/21 18: Baso # (Auto) 0.1 X10^3/uL (0.0-0.1) 03/06/21 18: Absolute Nucleated RBC 0.3 /100WBC 03/06/21 18:30 Plt Morphology Comment Normal (NORMAL) 03/06/21 18: RBC Morphology Abnormal (NORMAL) A 03/06/21 18:30 Hypochromasia 3+ A 03/06/21 18:30 Anisocytosis 3+ A 03/06/21 18:30 Microcytosis 3+ A 03/06/21 18:30 Acanthocytes (Spur) 2+ 03/06/21 18:30 Schistocytes 2+ A 03/06/21 18:30 Sodium 143 mmol/L (136-145) 03/06/21 18:30 Corrected Sodium TNP 03/06/21 18:30 Potassium 4.0 mmol/L (3.5-5.1) 03/06/21 18:30 Chloride 109 mmol/L (98-107) H 03/06/21 18:30 Carbon Dioxide 25.7 mmol/L (21-32) 03/06/21 18:30 BUN 26 mg/dL (7-18) H 03/06/21 18:30 Creatinine 1.11 mg/dL (0.55-1.02) H 03/06/21 18:30 Est GFR (MDRD) Af Amer > 60 (>60) 03/06/21 18:30 Est GFR (MDRD) Non-Af 57 (>60) L 03/06/21 18:30 Glucose 97 mg/dL (65-99) 03/06/21 18:30 Calcium 8.6 mg/dL (8.5-10.1) 03/06/21 18:30 Corrected Calcium 9.3 mg/dL (8.5-10.1) 03/06/21 18:30 Iron 9 ug/dL (50-175) L 03/06/21 18:30 Transferrin 284 mg/dL (202-364) 03/06/21 18:30 Ferritin 12 ng/mL (8-252) 03/06/21 18:30 Total Bilirubin 0.10 mg/dL (0.2-1.0) L 03/06/21 18:30 AST 18 Units/L (15-37) 03/06/21 18:30 ALT 17 Units/L (12-78) 03/06/21 18:30 Alkaline Phosphatase 66 Units/L (46-116) 03/06/21 18:30 Total Protein 7.6 g/dL (6.4-8.2) 03/06/21 18:30 Albumin 3.1 g/dL (3.4-5.0) L 03/06/21 18:30 Globulin 4.5 g/dL (2.5-4.5) 03/06/21 18:30 Albumin/Globulin Ratio 0.7 Ratio (1.1-2.1) L 03/06/21 18:30 Vitamin B12 512 pg/mL (193-986) 03/06/21 18:30 Folate 6.5 ng/mL (>8.6) L 03/06/21 18:30 HCG, Qual Negative <10 mIU/mL 03/06/21 18:30 SARS CoV-2 RNA Rapid RYAN Negative (NEGATIVE) 03/06/21 21:00 Blood Type B POSITIVE 03/06/21 18:30 Antibody Screen Negative 03/06/21 18:30 Crossmatch See Detail 03/06/21 18:30 Review of Systems Constitutional: Weakness Eyes: No Symptoms Reported ENT: No Symptoms Reported Respiratory: No Symptoms Reported Cardiovascular: No Symptoms Reported Gastrointestinal: No Symptoms Reported Genitourinary: No Symptoms Reported Musculoskeletal: No Symptoms Reported Skin: No Symptoms Reported Neurological: No Symptoms Reported Physical Exam Vital Signs: Temperature 98.6 F Pulse Rate [Apical] 74 Pulse Rate 88 Respiratory Rate 16 Blood Pressure [Right Arm] 110/55 Blood Pressure [Left Arm] 170/90 Blood Pressure 86/47 O2 Sat by Pulse Oximetry 100 Oriented: Normal Eyes: Normal Ear: Normal Nose: Normal Throat: Normal Respiratory: Clear Throughout Cardiovascular: Normal : Normal Auscultation: Bowel Sounds: Normal Palpation: Normal Tenderness: Normal Skin: Normal Musculoskeletal: Normal Psychiatric: Normal Mood Description: Calm and Appropriate Affect: Normal Speech Pattern: Clear and Appropriate Assessment/Plan (1) Symptomatic anemia: Status: Acute Plan: Receiving 2 units packed red blood cells. Trend Hgb Review H&P Reviewed: Yes Patient was examined?: Yes
[2021-03-07 08:38] VITALS: BP 145/75
[2021-03-07] MEDS ORDERED: PREDNISONE TAB 20 MG PO SCH (09:00)
[2021-03-07 09:58] LABS: BASOPHILS % (AUTO) 0.5 % (0.2-1.0); HEMOGLOBIN 8.5 g/dL (12.0-16.0); LYMPHOCYTES # (AUTO) 1.8 X10^3/uL (1.3-2.9); LYMPHOCYTES % (AUTO) 18.2 % (21.0-51.0); MEAN CORPUSCULAR HEMOGLOBIN 19.8 pg (27.0-34.0); MEAN CORPUSCULAR HGB CONC 30.2 g/dL (33.0-35.0); MEAN CORPUSCULAR VOLUME 65.4 fL (80.0-100.0); MEAN PLATELET VOLUME 8.8 fL (7.4-11.0); MONOCYTES # (AUTO) 0.2 x10^3/uL (0.3-0.8); NEUTROPHILS # (AUTO) 7.8 x10^3/uL (2.2-4.8); NEUTROPHILS % (AUTO) 79.3 % (42.0-75.0); PLATELET COUNT 236 X10^3/uL (150.0-450.0); RED BLOOD COUNT 4.28 X10^6/uL (3.5-5.4); RED CELL DISTRIBUTION WIDTH 31.4 % (11.6-16.5); WHITE BLOOD COUNT 9.9 X10^3/uL (3.6-10.0)
[2021-03-07 10:16] LABS: ALANINE AMINOTRANSFERASE 15 Units/L (12-78); ALBUMIN 2.8 g/dL (3.4-5.0); ALKALINE PHOSPHATASE 55 Units/L (46-116); ASPARTATE AMINO TRANSFERASE 17 Units/L (15-37); BLOOD UREA NITROGEN 22 mg/dL (7-18); CALCIUM 8.7 mg/dL (8.5-10.1); CHLORIDE 107 mmol/L (98-107); COR CA(FOR HYPOALB) 9.7 mg/dL (8.5-10.1); COR NA(FOR HYPERGLY) 141 mmol/L (136-145); CREATININE 0.74 mg/dL (0.55-1.02); SODIUM 141 mmol/L (136-145); TOTAL PROTEIN 7.5 g/dL (6.4-8.2); eGFR NON BLACK RACES > 60 (>60)
[2021-03-07 10:33] LABS: ANISOCYTOSIS 3+; HYPOCHROMASIA 3+; MICROCYTOSIS 1+; PLATELET MORPHOLOGY COMMENT NORMAL (NORMAL); SCHISTOCYTES 1+; TARGET CELLS SLIGHT
== END 2021-03-07 11:40 | disposition left against medical advice (07) | DRG 812 ==
LOC: ER 17:54 → MED/SURG 22:17
PROVIDERS: ADMIT Obstetrics & Gynecology Obstetrics; ATTEND Internal Medicine